=== PATIENT | male | born 1950 | race Caucasian/White ===

== ENCOUNTER 2018-07-17 07:15 | Day surgery (SDC) | payer OTHER, BC ==
--- OUTSIDE RECORDS SUMMARY | 2018-07-17 07:25 | XMS REPORT ---
:1950 [facility] Address [address] [place] [address] Dr. Honeycutt [address] [place] [id number] Care Team Providers Name Role Phone RADHA SAGE Unavailable Unavailable SHAHID MILLS Unavailable Unavailable Problems This patient has no known problems. Allergies, Adverse Reactions, Alerts This patient has no known allergies or adverse reactions. Medications This patient has no known medications. Results Test Description Test Time Test Comments Text Results Atomic Results Result Comments MR, ABDOMEN, 2018-05-05 09:49:00 Referring Md: Kenny FINAL REPORT PATIENT ID : WITHOUT / WITH IV Abrams [id number] EXAMINATION: MRI CONTRAST Abdomen with and without contrast. TECHNIQUE: Axial T1 nonfat sat in and out of phase, axial T2 fat sat, coronal T2 nonfat sat, axial DWI and ADC MR images of the abdomen were obtained before and after the administration of 8 cc of gadolinium. Axial T1 fat sat GRE dynamic images in precontrast, arterial, venous and delayed phases were obtained. CLINICAL HISTORY: Abnormal liver diagnostic imaging, liver lesion greater than 1 cm, normal liver, no known malignancy, multiple liver cysts COMPARISON: MRI abdomen April 20, 2017 FINDINGS: LOWER THORAX: Unremarkable. LIVER: Normal hepatic size and contour.. No hepatic signal abnormality. Multiple T2 hyperintense, T1 hypointense, nonenhancing lesions are again noted throughout the hepatic parenchyma ranging in size from 0.1-3.0 cm, which are relatively stable since the prior exam. Most lesions are unilocular, however, a few lesions have lobulated appearance and thin intervening nonvascular septations.For example:*A 3.0 x 1.9 cm lobulated lesion in hepatic segment II (series 9, image 13).*A 1.6 x 1.3 cm lobulated lesion in the anterior aspect of hepatic segment III (series 9, image 16).*A 2.1 x 1.2 cm lesion at the inferior tip of hepatic segment (series 7, image 25).*A 2.1 x 1.8 cm lobulated lesion in hepatic segment IVB (series 7, image 16). None of these lesions show enhancing mural nodules.No suspicious enhancing lesions. BILIARY: No ductal dilatation or filling defect. The gallbladder has a normal appearance. PANCREAS: No mass or ductal dilatation. SPLEEN: No splenomegaly. ADRENALS: No nodules. KIDNEYS: No hydronephrosis or solid enhancing mass in the imaged portion of the kidneys. PERITONEUM / RETROPERITONEUM: No upper abdominal free fluid. GI TRACT: No bowel dilation or evidence of obstruction. LYMPH NODES: No upper abdominal lymphadenopathy. VESSELS: The celiac trunk, superior and inferior mesenteric and bilateral renal arteries are patent. The portal, superior mesenteric and splenic veins are patent. No collateral circulation. BONES AND SOFT TISSUES: Stable dextroscoliosis of the lumbar spine with associated degenerative changes.. No soft tissue abnormalities. IMPRESSION: 1. Multiple stable simple hepatic cysts. The larger lesions are lobulated and contain thin nonvascular septa without enhancement or enhancing mural nodules. These lesions may represent minimally complex cysts versus grouped simple cysts. Signed: Zachary Lucero MDReport Verified Date/Time: 05/05/2018 09:49:32 Reading Location: [facility] Reading Room [address] [place] [address] -CREATININE 2018-05-04 12:06:00 Test Item Value Reference Range Comments POC-CREATININE (BEAKER) (test 0.9 mg/dL 0.6-1.[address] [facility] 7200 mhmv=7276) [facility] [address] POC-EGFR (BEAKER) (test 84 mL/min/1.73M2 qoib=9476) TISSUE [id number] 10:45:00Surgical Pathology Report Case: [id number] Authorizing Provider: Shahid Mills MD Collected: 09/27/2017 0912 Ordering Location: [facility] ENDOSCOPY Received: 09/27/2017 1150 SERVICES Pathologist: Naima Gaspar MD Specimens: A) - Polyp, Colon - Transverse, polypectomy B) -Polyp, Colon - Rectum, polypectomy A. TRANSVERSE COLON POLYP, BIOPSY: - HYPERPLASTIC POLYPB. RECTUM, POLYP, BIOPSY: - POLYPOID COLONIC MUCOSA WITH HYPERPLASTIC CHANGESJ/pl Signing Pathologist Direct Phone Line: [phone] signed by Naima Gaspar MD on 09/29/2017 at 10:45 AMEndoscopic report reviewed. [id number] cancer screening A.Transverse colon polyp. B. Rectum polyp Specimen A: Received in formalin labeled "polyp, colon transverse" are two fragments each 0.3 cm in greatest dimension. The specimen is entirely submitted in A1.Specimen B: Received in formalin labeled "polyp, colon rectum" is a single fragment measuring 0.5 cm in greatest dimension. The specimen is entirely submitted in B1. DB/ew PerformedMR, ABDOMEN, [id number] 15:16:00Referring Md: Kenny Tobias REPORT History: Liver lesion Comparison: None Technique : Multiplanar imaging with multiple sequences of the abdomen was performed utilizing a 3.0 jess magnet with and without the administration of gadolinium contrast. Comment: The lung bases are clear. There are no focal or diffuse abnormalities of the osseous structures. There is dextroscoliosis of the lumbar spine. The subcutaneous soft tissues as well as the musculature are within normal limits. The spleen, adrenalglands, kidneys, pancreas, stomach, and duodenum are within normal limits. There is no abdominal or retroperitoneal lymphadenopathy. The visualized portions of the large and small bowel are within normal limits. There are numerous hepatic cysts. The largest cyst is seen in the left lobe measuring up to 3.3 x 2.4 cm. No suspicious enhancing hepatic lesions are seen. No ascites is identified. The portal vein measures up to a maximum of 0.9 cm in diameter. There is no portal, splenic, or superior mesenteric vein thrombosis. Impression: Multiple hepatic cysts. No suspicious enhancing lesions are seen.Signed: Sherif Strickland MDReport Verified Date/Time: 15:16:29 Reading Location: [address] Radiology Reading Room POCT- [id number] 13:52:00 Test Item Value Reference Range Comments POC-CREATININE (BEAKER) 0.9 mg/dL 0.6-1.[address] [facility] [address] (test scch=3133) [facility] [address] POC-EGFR (BEAKER) (test 84 mL/min/1.73M2 ftzl=4819) CARCINOEMBRYONIC ANTIGEN (CEA)2017-01-13 14:17:00 Test Item Value Reference Range Comments CARCINOEMBRYONIC ANTIGEN (BEAKER) (test iuus=607) 2.3 ng/mL 0.0-5.0 HEPATITIS B SURFACE [id number] 14:13:00 Test Item Value Reference Range Comments HEPATITIS B SURFACE ANTIBODY (BEAKER) (test < mIU/mL <8.0 mpce=060) ALPHA FETOPROTEIN (AFP), TUMOR [id number] 14:06:00 Test Item Value Reference Range Comments ALPHA-FETOPROTEIN (BEAKER) (test znjm=7222) 6.2 ng/mL <10.0 HEPATITIS B CORE ANTIBODY, [id number] 14:06:00 Test Item Value Reference Range Comments HEPATITIS B CORE TOTAL ANTIBODY (BEAKER) (test Nonreactive Nonreactive bdxw=672) HEPATITIS A ANTIBODY, [id number] 14:06:00 Test Item Value Reference Range Comments HEPATITIS A IGG ANTIBODY (BEAKER) (test Nonreactive Nonreactive cpae=1876) HEPATITIS B SURFACE [id number] 13:58:00 Test Item Value Reference Range Comments HEPATITIS B SURFACE ANTIGEN (2) (BEAKER) (test Nonreactive Nonreactive jgis=8068) HEPATITIS C [id number] 13:58:00 Test Item Value Reference Range Comments HEPATITIS C ANTIBODY (BEAKER) (test qgax=223) Nonreactive Nonreactive
--- OUTSIDE RECORDS SUMMARY | 2018-07-17 07:25 | XMS REPORT | Clinical Summary ---
:1950 Author Organization [facility] Address [address] [place] [address] Care Team Providers Name Role Phone Romel Chen MD Primary Care Provider Allergies No Known Allergies Medications Medication Sig Dispensed Refills Start Date End Date Status atorvastatin Take 10 mg by 0 Active (LIPITOR) 10 MG mouth daily. tablet aspirin 81 MG EC Take 81 mg by 0 Active tablet mouth daily. b complex vitamins Take 1 tablet 0 Active tablet by mouth daily. TiZANidine Take 4 mg by 0 Active (ZANAFLEX) 4 MG mouth nightly . capsule pentoxifylline Take 400 mg by 0 Active (TRENTAL) 400 mg CR mouth 3 (three) tablet times daily with meals. multivitamin per Take 1 tablet 0 Active tablet by mouth daily. testosterone Place 1 packet 0 Active (ANDROGEL) 1 % (50 onto the skin mg/5 gram) GlPk daily. topical gel tadalafil (CIALIS) Take 5 mg by 0 Active 5 MG tablet mouth daily as needed for Erectile Dysfunction. latanoprost 1 drop nightly. 0 Active (XALATAN) 0.005 % ophthalmic solution VITAMIN B Take 1 tablet 0 Active COMPLEX/ZINC (B by mouth daily. COMPLEX-ZINC ORAL) Missing or 2 (two) times daily STRONVIVO 0 Active Non-Formulary SUPPLEMENT . Medication ranitidine (ZANTAC) Take 1 tablet 90 tablet 4 09/27/2017 Active 150 MG tablet (150 mg total) by mouth daily. lansoprazole Take 1 capsule 90 capsule 4 09/27/2017 Active (PREVACID) 30 MG (30 mg total) 9 capsule by mouth daily For About a month. LANSOPRAZOLE Take 30 mg by 0 Discontinued (PREVACID ORAL) mouth daily For 8 About a month. arginine, Take by mouth. 0 Discontinued L-arginine, 2,000 8 mg PwPk niacin (NIASPAN) Take 1,000 mg 0 Discontinued 1000 MG CR tablet by mouth 8 nightly. ranitidine (ZANTAC) Take 150 mg by 0 Discontinued 150 MG tablet mouth daily. 8 Active Problems Problem Noted Date Gastroesophageal reflux disease with esophagitis 06/16/2017 Abnormal liver diagnostic imaging 01/13/2017 Last Assessment & Plan: Diagnosed in 2014 on liver US and confirmed on CT. Findings are suggestive of simple cysts. No biliary dilatation and on other cysts on spleen, pancreas or kidneys. Some of the cysts are larger than before. Patient is asymptomatic and doesn't complain of constitutional symptoms. We will check tumor markers and check liver MRI in 3-4 months for further evaluation. Immunity status testing 01/13/2017 Last Assessment & Plan: CDC recommends that all patients with chronic liver disease, regardless of etiology, should be immunized to prevent hepatitis A and hepatitis B if they are not already immune. This should be done in ad dition to other age-appropriate vaccines. We will test for immunity to both viruses - vaccine recommendations will follow. Class 1 obesity in adult 01/13/2017 Last Assessment & Plan: Body mass index is 30.18 kg/(m^2). Obesity is an established risk factor for vascular complications (ie coronary artery disease, cerebrovascular disease, peripheral vascular disease), osteoarthritis, pulmonary disease, as well as the development of non-alcoholic fatty liver disease and the risk for non-alcoholic steatohepatitis. We have recommended a structured weight loss program (10% body weight initially), along with dietary modifications and regular exercise for overall good health and to minimize the risk of obesity -related complications. Encounters Date Type Specialty Care Team Description 05/16/2018 Office Visit Hepatology Chantell Estrella Abnormal liver diagnostic imaging (Primary Dx); MD Esteban Cancer screening; Lilia Ballesteros Immunity status testing; MATTHEW Whitmore Gastroesophageal reflux disease with esophagitis; Class 1 obesity due to excess calories without serious comorbidity with body mass index (BMI) of 30.0 to 30.9 in adult 05/04/2018 Hospital Encounter Magnetic Resonance Chantell Estrella Abnormal liver Imaging MD Esteban diagnostic imaging 3, [facility] Melecio Mr 05/03/2018 Travel 05/01/2018 Orders Only Hepatology Mariann Garcia Abnormal liver diagnostic imaging (Primary Dx); MORENITA Cisneros Cancer screening 09/27/2017 Surgery Zaid Acevedo COLONOSCOPY,POLYPECTOMY MD Jad 09/27/2017 Anesthesia Event José Sparks MD 09/27/2017 Hospital Encounter Zaid Acevedo MD 09/01/2017 Hospital Encounter Pre-Admission Resource, Oqmt Testing Preadmit Phone after 07/16/2017 Family History Medical History Relation Name Comments Atrial fibrillation Father Heart disease Father Stroke Father Lymphoma Mother non-hodgkins lymphoma Relation Name Status Comments Father Mother Social History Tobacco Use Types Packs/Day Years Used Date Former Smoker 0.25 Quit: 09/01/1989 Smokeless Tobacco: Never Used Tobacco Cessation: Counseling Given: No Comments: QUIT 2008 Alcohol Use Drinks/Week oz/Week Comments Yes scothch/wine 2-4/week Sex Assigned at Date Recorded Male 05/03/2018 5:51 PM CDT Job Start Date Occupation Industry Not on file Not on file Not on file Travel History Travel Start Travel End No recent travel history available. Last Filed Vital Signs Vital Sign Reading Time Taken Blood Pressure 144/86 05/16/2018 12:19 PM CDT Pulse 58 05/16/2018 12:19 PM CDT Temperature 37 C (98.6 F) 05/16/2018 12:19 PM CDT Respiratory Rate 15 05/16/2018 12:19 PM CDT Oxygen Saturation 96% 05/16/2018 12:19 PM CDT Inhaled Oxygen Concentration - - Weight 80.2 kg (176 lb 12.8 oz) 05/16/2018 12:19 PM CDT Height 165.1 cm (5' 5") 05/16/2018 12:19 PM CDT Body Mass Index 29.42 05/16/2018 12:19 PM CDT Plan of Treatment Date Type Specialty Care Team Description 05/17/2019 Office Visit Hepatology Resource, [facility] E Procedures Procedure Name Priority Date/Time Associated Comments Diagnosis MR ABDOMEN WITH/WITHOUT Routine 05/04/2018 1:07 Abnormal liver Results for this IV CONTRAST PM CDT diagnostic procedure are in imaging the results section. POCT-CREATININE Routine 05/04/2018 12:03 Results for this PM CDT procedure are in the results section. BASIC METABOLIC PANEL Routine 05/03/2018 8:38 Abnormal liver Results for this (7) AM CDT diagnostic procedure are in imaging the results Cancer screening section. HEPATIC FUNCTION PANEL Routine 05/03/2018 8:38 Abnormal liver Results for this AM CDT diagnostic procedure are in imaging the results Cancer screening section. CBC W/PLT COUNT & AUTO Routine 05/03/2018 8:38 Abnormal liver Results for this DIFFERENTIAL AM CDT diagnostic procedure are in imaging the results Cancer screening section. PROTHROMBIN TIME/INR Routine 05/03/2018 8:38 Abnormal liver Results for this AM CDT diagnostic procedure are in imaging the results Cancer screening section. ALPHA FETOPROTEIN (AFP), Routine 05/03/2018 8:38 Abnormal liver Results for this TUMOR MARKER AM CDT diagnostic procedure are in imaging the results Cancer screening section. CARCINOEMBRYONIC ANTIGEN Routine 05/03/2018 8:38 Abnormal liver Results for this (CEA) AM CDT diagnostic procedure are in imaging the results Cancer screening section. CARBOHYDRATE ANTIGEN Routine 05/03/2018 8:38 Abnormal liver Results for this 19-9 (CA 19-9) AM CDT diagnostic procedure are in imaging the results Cancer screening section. COLONOSCOPY,POLYPECTOMY 09/27/2017 10:00 Colon cancer AM CDT screening REPORT OF PROCEDURE - 09/27/2017 9:25 ENDOSCOPY URL AM CDT TISSUE EXAM AP Routine 09/27/2017 9:12 Results for this AM CDT procedure are in the results section. after 07/16/2017 Results MR abdomen with/without IV contrast (05/04/2018 1:07 PM CDT) Specimen Narrative Performed At FINAL REPORT [facility] EXAMINATION: MRI Abdomen with and without contrast. TECHNIQUE: Axial T1 nonfat sat in and out of phase, axial T2 fat sat, coronal T2 nonfat sat, axial DWI and ADC MR images of the abdomen were obtained before and after the administration of 8 cc of gadolinium.Axial T1 fat sat GRE dynamic images in precontrast, arterial, venous and delayed phases were obtained. CLINICAL HISTORY: Abnormal liver diagnostic imaging, liver lesion greater than 1 cm, normal liver, no known malignancy, multiple liver cysts COMPARISON: MRI abdomen April 20, 2017 FINDINGS: LOWER THORAX: Unremarkable. LIVER: Normal hepatic size and contour..No hepatic signal abnormality. Multiple T2 hyperintense, T1 hypointense, nonenhancing lesions are again noted throughout the hepatic parenchyma ranging in size from 0.1-3.0 cm, which are relatively stable since the prior exam. Most lesions are unilocular, however, a few lesions have lobulated appearance and thin intervening nonvascular septations. For example: *A 3.0 x 1.9 cm lobulated lesion in hepatic segment II (series 9, image 13). *A 1.6 x 1.3 cm lobulated lesion in the anterior aspect of hepatic segment III (series 9, image 16). *A 2.1 x 1.2 cm lesion at the inferior tip of hepatic segment (series 7, image 25). *A 2.1 x 1.8 cm lobulated lesion in hepatic segment IVB (series 7, image 16). None of these lesions show enhancing mural nodules. No suspicious enhancing lesions. BILIARY: No ductal dilatation or filling defect.The gallbladder has a normal appearance. PANCREAS: No [...] inferior mesenteric and bilateral renal arteries are patent.The portal, superior mesenteric and splenic veins are patent.No collateral circulation. BONES AND SOFT TISSUES: Stable dextroscoliosis of the lumbar spine with associated degenerative changes..No soft tissue abnormalities. IMPRESSION: 1. Multiple stable simple hepatic cysts. The larger lesions are lobulated and contain thin nonvascular septa without enhancement or enhancing mural nodules. These lesions may represent minimally complex cysts versus grouped simple cysts. Signed: Gabe Lucero MD Report Verified Date/Time:05/05/2018 09:49:32 Reading Location: [facility] Room [address] [place] [address] Procedure Note Interface, External Ris In - 05/05/2018 9:51 AM CDT FINAL REPORT EXAMINATION: MRI Abdomen with and without contrast. TECHNIQUE: Axial [...] have lobulated appearance and thin intervening nonvascular septations. For example: *A 3.0 x 1.9 cm lobulated lesion in hepatic segment II (series 9, image 13). *A 1.6 x 1.3 cm lobulated lesion in the anterior aspect of hepatic segment III (series 9, image 16). *A 2.1 x 1.2 cm lesion at the inferior tip of hepatic segment (series 7, image 25). *A 2.1 x 1.8 cm lobulated lesion in hepatic segment IVB (series 7, image 16). None of these lesions show enhancing mural nodules. No suspicious enhancing lesions. BILIARY: No ductal dilatation [...] complex cysts versus grouped simple cysts. Signed: Gabe Lucero MD Report Verified Date/Time: 05/05/2018 09:49:32 Reading Location: [facility] Reading Room [address] [place] [address] Performing Organization Address City/State/Zipcode Phone Number GE RIS POC-Creatinine (05/04/2018 12:03 PM CDT) POC-Creatinine 0.9Comment: TESTED AT [facility] 0.6 - 1.3 mg/dL [facility] [address] [facility] [employer] [address] POC-EGFR 84 mL/min/1.73M2 [facility] Specimen Blood Performing Organization Address City/[facility] Phone Number [facility] [address] [place] [phone] CENTER Carbohydrate antigen 19-9 (CA 19-9) (05/03/2018 8:38 AM CDT) Carbohydrate Antigen 4 0 - 35 U/mL [facility] 1 19-9 Comment: [facility] Electrochemiluminescence Immunoassay (ECLIA) Values obtained with different assay methods or kits cannot be used interchangeably.Results cannot be interpreted as absolute evidence of the presence or absence of malignant disease. Specimen Blood Narrative Performed At Performed at:[facility] [employer] [place] [employer] [address] [place], [place] [id number] Senior Instrumentation Engineer: Marlon Valle MD, Phone:[phone] Performing Organization Address [facility] Phone Number [facility] 1 Alpha fetoprotein (AFP), tumor marker (05/03/2018 8:38 AM CDT) AFP, Serum, Tumor 5.6 0.0 - 8.3 ng/mL [facility] 1 Marker Comment: [facility] Electrochemiluminescence Immunoassay (ECLIA) Values obtained with different assay methods or kits cannot be used interchangeably.Results cannot be interpreted as absolute evidence of the presence or absence of malignant disease. This test is not interpretable in females. Specimen Blood Narrative Performed At Performed at:[employer] [place] [employer] [place], [id number] Senior Instrumentation Engineer: Marlon Valle MD, Phone:[phone] Performing Organization Address [facility] Phone Number [facility] 1 Pro-time/INR (05/03/2018 8:38 AM CDT) INR 1.0 0.8 - 1.2 [facility] 1 Comment: Reference interval is for non-anticoagulated patients. Suggested INR therapeutic range for Vitamin K antagonist therapy: Standard Dose (moderate intensity therapeutic range): 2.0 - 3.0 Higher intensity therapeutic range 2.5 - 3.5 Prothrombin Time 10.7 9.1 - 12.0 sec [facility] 1 Specimen Blood Narrative Performed At Performed at:[address] [facility] [address] [place], [id number] Senior Instrumentation Engineer: Marlon Valle MD, Phone:[phone] Performing Organization Address [facility] Phone Number [facility] 1 CBC with platelet count + automated diff (05/03/2018 8:38 AM CDT) WBC 5.9 3.4 - 10.8 x10E3/uL [facility] 1 RBC 4.90 4.14 - 5.80 x10E6/uL [facility] 1 Hemoglobin 15.5 13.0 - 17.7 g/dL [facility] 1 Hematocrit 46.1 37.5 - 51.0 % [facility] 1 MCV 94 79 - 97 fL [facility] 1 MCH 31.6 26.6 - 33.0 pg [facility] 1 MCHC 33.6 31.5 - 35.7 g/dL [facility] 1 RDW 13.1 12.3 - 15.4 % [facility] 1 Platelets 259 150 - 379 x10E3/uL [facility] % Neutros 67 Not Estab. % [facility] % Lymphs 24 Not Estab. % [facility] % Monos 6 Not Estab. % [facility] % Eos 2 Not Estab. % [facility] % Baso 1 Not Estab. % [facility] # Neutros 4.0 1.4 - 7.0 x10E3/uL [facility] # Lymphs 1.4 0.7 - 3.1 x10E3/uL [facility] # Monos 0.3 0.1 - 0.9 x10E3/uL [facility] # Eos 0.1 0.0 - 0.4 x10E3/uL [facility] 1 Baso (Absolute) 0.0 0.0 - 0.2 x10E3/uL [facility] % Immature Grans 0 Not Estab. % [facility] 1 # Immature Grans 0.0 0.0 - 0.1 x10E3/uL [facility] 1 Specimen Blood Narrative Performed At Performed at:[address] [place], [place] [id number] Senior Instrumentation Engineer: Marlon Valle MD, Phone:[phone] Performing Organization Address [facility] Phone Number [facility] 1 Carcinoembryonic Antigen (CEA) (05/03/2018 8:38 AM CDT) CEA 2.4 0.0 - 4.7 ng/mL [facility] 1 Comment: Nonsmokers <3.9 Smokers <5.6 [facility] Electrochemiluminescence Immunoassay (ECLIA) Values obtained with different assay methods or kits cannot be used interchangeably.Results cannot be interpreted as absolute evidence of the presence or absence of malignant disease. Specimen Blood Narrative Performed At Performed at:[address] [place], [place] [id number] Senior Instrumentation Engineer: Marlon Valle MD, Phone:[phone] Performing Organization Address [facility] Phone Number [facility] 1 Hepatic function panel (05/03/2018 8:38 AM CDT) Protein, Total, Serum 7.0 6.0 - 8.5 g/dL [facility] 1 Albumin, Serum 5.0 (H) 3.6 - 4.8 g/dL [facility] 1 Bilirubin, Total 0.7 0.0 - 1.2 mg/dL [facility] 1 Bilirubin, Direct 0.18 0.00 - 0.40 mg/dL [facility] 1 Alkaline Phosphatase, S 55 39 - 117 IU/L [facility] 1 AST (SGOT) 29 0 - 40 IU/L [facility] 1 ALT (SGPT) 24 0 - 44 IU/L [facility] 1 Specimen Blood Narrative Performed At Performed at:[address] [place], [place] [id number] Senior Instrumentation Engineer: Marlon Valle MD, Phone:[phone] Performing Organization Address [facility] Cent[facility] Phone Number [facility] 1 Basic Metabolic Panel (05/03/2018 8:38 AM CDT) Glucose, Serum 90 65 - 99 mg/dL [facility] 1 BUN 18 8 - 27 mg/dL [facility] 1 Creatinine, Serum 0.94 0.76 - 1.27 mg/dL [facility] 1 eGFR If NonAfricn Am 84 >59 mL/min/1.73 [facility] 1 eGFR If Africn Am 97 >59 mL/min/1.73 [facility] 1 BUN/Creatinine Ratio 19 10 - 24 [facility] 1 Sodium, Serum 142 134 - 144 mmol/L [facility] 1 Potassium, Serum 4.3 3.5 - 5.2 mmol/L [facility] 1 Chloride, Serum 100 96 - 106 mmol/L [facility] 1 Carbon Dioxide, Total 26 20 - 29 mmol/L [facility] 1 Calcium, Serum 9.7 8.6 - 10.2 mg/dL [facility] 1 Specimen Blood Narrative Performed At Performed at:01 - [facility] [place] [facility] [address] [place], [id number] Senior Instrumentation Engineer: Marlon Valle MD, Phone:[phone] Performing Organization Address [facility] Phone Number [facility] 1 REPORT OF PROCEDURE - ENDOSCOPY URL (09/27/2017 9:25 AM CDT) Narrative Performed At Tissue Exam (09/27/2017 9:12 AM CDT) Case Report Surgical Pathology Report Case: [id number] [facility] Authorizing Provider:Zaid Acevedo MD Collected: 09/27/2017 0912 [facility] Ordering Location: [facility] ENDOSCOPY Received: 09/27/2017 1150 SERVICES Pathologist: Naima Gaspar MD Specimens: A) - Polyp, Colon - Transverse, polypectomy B) - Polyp, Colon - Rectum, polypectomy DIAGNOSIS A. TRANSVERSE COLON POLYP, BIOPSY: [facility] - HYPERPLASTIC POLYP [facility] B. RECTUM, POLYP, BIOPSY: - POLYPOID COLONIC MUCOSA WITH HYPERPLASTIC CHANGE SJ/pl Signing Pathologist Direct Phone Line: [phone] COMMENT Endoscopic report reviewed. [facility] CPT Code(s) 06025 x2 [facility] CLINICAL HISTORY Colon cancer screening [facility] SPECIMEN SOURCE A. Transverse colon polyp. [facility] B. Rectum polyp [facility]ENTER GROSS DESCRIPTION Specimen A: Received in formalin labeled "polyp, colon transverse" are two fragments each 0.3 cm in greatest dimension. The specimen is entirely submitted in A1. [facility] Specimen B: Received in formalin labeled "polyp, colon rectum" is a single fragment measuring 0.5 cm in greatest dimension. The specimen is entirely submitted in B1. DB/ew MICROSCOPIC DESCRIPTION Performed [facility] Specimen Tissue - Polyp, Colon - Transverse Tissue - Polyp, Colon - Rectum Performing Organization Address City/State/Zipcode Phone Number [facility] [address] [place] [address] CENTER after 07/16/2017 Insurance Payer Benefit Plan / Subscriber ID Type Phone Address Group MEDICARE MEDICARE A B xxxxxxxxxxx Medicare BLUE CROSS/BLUE BS [place] xxxxxxxxxxxx [facility] [phone] [address] [facility] [place] [address] (Home) [place] [address]
[2018-07-17] MEDS ORDERED: NA CHLORIDE 0.9% 500 ML ONE (07:38)
[2018-07-17] MEDS ORDERED: EPINEPHRINE/PF 1 MG/ML AMP ONE (08:05)
[2018-07-17] MEDS ORDERED: BALANCED SALT IRRIG PLAIN 500 ML BTL IRR ONE (08:05)
[2018-07-17] MEDS ORDERED: NS 0.9% VIAL 10 ML ONE (08:05)
[2018-07-17] MEDS: PHENYLEPHRINE 10% OPTH 5ML ONE ×3 (08:10→08:20)
[2018-07-17] MEDS: CYCLOPENTOLATE 1% OPTH 2 ML ONE ×3 (08:10→08:20)
[2018-07-17] MEDS: TETRACAINE HCL 0.5% 4ML OPTH ONE ×2 (08:24→09:01)
[2018-07-17] MEDS: LIDOCAINE 2% MPF 5 ML VIAL ONE ×2 (08:25→09:02)
[2018-07-17] MEDS: BUPIVACAINE 0.25% PF 10 ML VIAL ONE ×2 (08:25→09:02)
[2018-07-17] MEDS ORDERED: LIDOCAINE 2% MPF 5 ML VIAL ONE (08:35)
[2018-07-17] MEDS ORDERED: PROPOFOL 200 MG/20 ML VIAL IV ONE (08:35)
[2018-07-17] MEDS ORDERED: BSS PLUS 500 ML BOTTLE IRR ONE (09:11)
[2018-07-17] MEDS: DUOVISC 1 KIT OPTH ONE ×2 (09:14→09:19)
[2018-07-17] MEDS: MOXIFLOXACIN HCL 10 DROPS/ML **OR USE OPTH ONE ×2 (09:19→09:28)
--- NOTE | 2018-07-17 09:38 | P.BOP ---
Preoperative diagnosis: Nuclear sclerotic cataract and goniosynechiae OD Postoperative diagnosis: Same Primary procedure: Phacoemulsification with IOL OD Estimated blood loss: None Anesthesia: Local (Subtenon's infusion with anesthesia for cataract surgery) Complications: None Implants: [id number] +25.5 Transferred to: Other (Day surgery) Condition: Good
[2018-07-17] MEDS ORDERED: DUOVISC 1 KIT OPTH ONE (10:31)
--- NOTE | 2018-07-17 12:30 | OP ---
Date of Procedure: 07/17/2018 Surgeon: Janel Flores MD Anesthesiologist: Nori Rg CRNA and Haroldo Al MD. Preoperative Diagnosis: Nuclear sclerotic cataract and corneal synechiae, OD ( right eye). Operation Performed: Phacoemulsification with intraocular lens implant, right eye. Anesthesia: Per cataract surgery. Complications: None Description Of Procedure: In day surgery, the patient was prepped with Betadine and draped. A conjunctival incision was made in the inferior nasal quadrant with Saundra scissors. A sub-Tenon block consisting of a 1:1 mixture of 2% Xylocaine and 0.25% bupivacaine was placed through the conjunctival incision with a blunt cannula. A Honan balloon was placed over the eye and the patient was transferred to the operating room. In the operating room the patient was prepped and draped in the usual sterile fashion for ophthalmic surgery. A lid speculum was placed in the right eye. Two paracentesis sites were made superiorly and inferiorly in the limbal cornea. Viscoat was placed in the anterior chamber and a crescent blade was used to make a corneal groove and tunnel, and a keratome was used to enter the anterior chamber. Provisc was placed in the anterior chamber and a 360 degree capsulotomy was performed with a cystitome. The lens was hydrodissected with BSS and rotated freely. The lens was removed with a stop and chop technique. 4.15 Phaco CDE was used to remove the lens. Residual cortex was removed with the irrigation and aspiration. Provisc was placed in the capsular bag. A ZCB00 +25.5 lens was placed in the capsular bag without complications. Irrigation and aspiration was used to remove residual viscoelastic. The paracentesis sites were hydrated with BSS. The wound and paracentesis sites were inspected and found to be watertight. Vigamox 0.07 cc was placed intracamerally at the end of the procedure. The eye was irrigated with balanced salt solution. The eye was patched with a soft cotton patch and Lovell metal shield. The patient was returned to day surgery in good condition. Comments: BSS Plus was used and the incision was created in the sclera after incising the conjunctiva with Saundra scissors. Discharge Instructions: State Mr. Howe is to follow up with my office this afternoon in the morning. MARIEL/MARY Voice ID: [id number] Report ID: [id number] [id number]
== END 2018-07-17 10:08 | disposition home or self-care (01) ==
LOC: OR 07:15
PROVIDERS: ATTEND Ophthalmology Retina Specialist
PROC: 08RJ3JZ Replacement of Right Lens with Synthetic Substitute, Percutaneous Approach (ICD-10-PCS; principal; 2018-07-17 09:00)
DX: H25.11 Age-related nuclear cataract, right eye (principal); H40.031 Anatomical narrow angle, right eye; H21.521 Goniosynechiae, right eye; E78.00 Pure hypercholesterolemia, unspecified; K21.9 Gastro-esophageal reflux disease without esophagitis; Z79.82 Long term (current) use of aspirin; Z79.899 Other long term (current) drug therapy
CPT/HCPCS: 66984; J2704; J0171

== ENCOUNTER 2018-10-16 08:53 | Day surgery (SDC) | payer OTHER, BC ==
--- OUTSIDE RECORDS SUMMARY | 2018-10-16 08:56 | XMS REPORT | Clinical Summary ---
:[address] [facility] Address [address] [place] [address] Care Team Providers Name Role Phone Romel Chen MD Primary Care Provider Allergies No Known Allergies Medications Medication Sig Dispensed Refills Start Date End Date Status atorvastatin Take 10 mg by 0 Active (LIPITOR) 10 MG mouth daily. tablet aspirin 81 MG EC Take 81 mg by 0 Active tablet mouth daily. b complex vitamins Take 1 tablet by 0 Active tablet mouth daily. TiZANidine (ZANAFLEX) Take 4 mg by 0 Active 4 MG capsule mouth nightly . pentoxifylline Take 400 mg by 0 Active (TRENTAL) 400 mg CR mouth 3 (three) tablet times daily with meals. multivitamin per Take 1 tablet by 0 Active tablet mouth daily. testosterone Place 1 packet 0 Active (ANDROGEL) 1 % (50 onto the skin mg/5 gram) GlPk daily. topical gel tadalafil (CIALIS) 5 Take 5 mg by 0 Active MG tablet mouth daily as needed for Erectile Dysfunction. latanoprost (XALATAN) 1 drop nightly. 0 Active 0.005 % ophthalmic solution VITAMIN B Take 1 tablet by 0 Active COMPLEX/ZINC (B mouth daily. COMPLEX-ZINC ORAL) Missing or 2 (two) times daily STRONVIVO 0 Active Non-Formulary SUPPLEMENT . Medication ranitidine (ZANTAC) Take 1 tablet 90 tablet 4 09/27/2017 Active 150 MG tablet (150 mg total) by mouth daily. lansoprazole Take 1 capsule 90 capsule 4 09/27/2017 09/27/2018 (PREVACID) 30 MG (30 mg total) by capsule mouth daily For About a month. Active Problems Problem Noted Date Gastroesophageal reflux [...] liver Imaging MD Esteban diagnostic imaging 3, [facility] Melecio Mr 05/03/2018 Travel 05/01/2018 Orders Only Hepatology Mariann Garcia Abnormal liver diagnostic imaging (Primary Dx); PMORENITA Cancer screening after 10/15/2017 Family History Medical History Relation Name Comments [...] Team Description 05/17/2019 Office Visit Hepatology Resource, [facility] E Procedures Procedure Name Priority Date/Time Associated Comments Diagnosis MR ABDOMEN WITH/WITHOUT Routine 05/04/2018 1:07 Abnormal liver Results for this IV CONTRAST PM CDT diagnostic imaging procedure are in the results section. POCT-CREATININE Routine 05/04/2018 12:03 Results for this PM CDT procedure are in the results section. BASIC METABOLIC PANEL Routine 05/03/2018 8:38 Abnormal liver Results for this (7) AM CDT diagnostic imaging procedure are in Cancer screening the results section. HEPATIC FUNCTION PANEL Routine 05/03/2018 8:38 Abnormal liver Results for this AM CDT diagnostic imaging procedure are in Cancer screening the results section. CBC W/PLT COUNT & AUTO Routine 05/03/2018 8:38 Abnormal liver Results for this DIFFERENTIAL AM CDT diagnostic imaging procedure are in Cancer screening the results section. PROTHROMBIN TIME/INR Routine 05/03/2018 8:38 Abnormal liver Results for this AM CDT diagnostic imaging procedure are in Cancer screening the results section. ALPHA FETOPROTEIN (AFP), Routine 05/03/2018 8:38 Abnormal liver Results for this TUMOR MARKER AM CDT diagnostic imaging procedure are in Cancer screening the results section. CARCINOEMBRYONIC ANTIGEN Routine 05/03/2018 8:38 Abnormal liver Results for this (CEA) AM CDT diagnostic imaging procedure are in Cancer screening the results section. CARBOHYDRATE ANTIGEN Routine 05/03/2018 8:38 Abnormal liver Results for this 19-9 (CA 19-9) AM CDT diagnostic imaging procedure are in Cancer screening the results section. after 10/15/2017 Results MR abdomen with/without IV contrast (05/04/2018 1:07 PM CDT) Specimen Narrative Performed At FINAL REPORT [facility] EXAMINATION: MRI Abdomen with and without contrast. [...] versus grouped simple cysts. Signed: Zachary Lucero MD Report Verified Date/Time:05/05/2018 09:49:32 Reading Location: [facility] Room [address] [place] [address] Procedure Note Interface, External Ris In - [...] versus grouped simple cysts. Signed: Zachary Lucero MD Report Verified Date/Time: 05/05/2018 09:49:32 Reading Location: [facility] Reading Room [address] [place] [address] Performing Organization Address City/[facility]/Zipcode Phone Number GE RIS POC-Creatinine (05/04/2018 12:03 PM CDT) POC-Creatinine 0.9Comment: TESTED AT [facility] 0.6 - 1.3 mg/dL [facility] [address] [place] [address] POC-EGFR 84 mL/min/1.73M2 [facility] Specimen Blood Performing Organization Address City/[facility]/Zipcode Phone Number [facility] MEDICAL [address] [place] [phone] CENTER Carbohydrate antigen 19-9 (CA 19-9) (05/03/2018 8:38 AM CDT) Carbohydrate Antigen 4 0 - 35 U/mL [facility] 1 19-9 Comment: [facility] Electrochemiluminescence Immunoassay (ECLIA) Values obtained with different assay methods or kits cannot be used interchangeably.Results cannot be interpreted as absolute evidence of the presence or absence of malignant disease. Specimen Blood Narrative Performed At Performed at:[address] [place], [place] [id number] Academic Interventionist: Marlon Valle MD, Phone:[phone] Performing Organization Address [facility] Phone Number [facility] 1 Alpha fetoprotein (AFP), tumor marker (05/03/2018 [...] females. Specimen Blood Narrative Performed At Performed at:[address] [place], [place] [id number] Academic Interventionist: Marlon Valle MD, Phone:[phone] Performing Organization Address [facility] Phone Number [facility] 1 Pro-time/INR (05/03/2018 8:38 AM CDT) INR 1.0 0.8 - 1.2 [facility] 1 Comment: Reference interval is for non-anticoagulated patients. Suggested INR therapeutic range for Vitamin K antagonist therapy: Standard Dose (moderate intensity therapeutic range): 2.0 - 3.0 Higher intensity therapeutic range 2.5 - 3.5 Prothrombin Time 10.7 9.1 - 12.0 sec [facility] 1 Specimen Blood Narrative Performed At Performed at:[address] [place], [place] [id number] Academic Interventionist: Marlon Valle MD, Phone:[phone] Performing Organization Address [facility] Phone Number [facility] 1 CBC with platelet count + automated [...] 1 Specimen Blood Narrative Performed At Performed at: [facility] [address] [place], [id number] Academic Interventionist: Marlon Valle MD, Phone:[phone] Performing Organization Address City/State/Zipcode Phone Number [facility] 1 Carcinoembryonic Antigen (CEA) (05/03/2018 8:38 AM CDT) CEA 2.4 0.0 - 4.7 ng/mL [facility] 1 Comment: Nonsmokers <3.9 Smokers <5.6 [facility] Electrochemiluminescence Immunoassay (ECLIA) Values obtained with different assay methods or kits cannot be used interchangeably.Results cannot be interpreted as absolute evidence of the presence or absence of malignant disease. Specimen Blood Narrative Performed At Performed at: [facility] [address] [place], [id number] Academic Interventionist: Marlon Valle MD, Phone:[phone] Performing Organization Address [facility] Phone Number [facility] 1 Hepatic function panel (05/03/2018 8:38 AM [...] 1 Specimen Blood Narrative Performed At Performed at: [facility] [address] [place], [id number] Academic Interventionist: Marlon Valle MD, Phone:[phone] Performing Organization Address [facility] Phone Number [facility] 1 Basic Metabolic Panel (05/03/2018 8:38 [...] Narrative Performed At Performed at:01 - [facility] [address] [place], [id number] Academic Interventionist: Marlon Valle MD, Phone:[phone] Performing Organization Address City/State/Zipcode Phone Number [facility] 1 after 10/15/2017 Insurance Payer Benefit Plan / Subscriber ID Type Phone Address Group MEDICARE MEDICARE A B xxxxxxxxxxx Medicare BLUE CROSS/BLUE [place] INDEMNITY [place] xxxxxxxxxxxx PPO [phone] [address] [place] [address] (Home) [place] [address]
--- OUTSIDE RECORDS SUMMARY | 2018-10-16 08:56 | XMS REPORT ---
:1950 Author Organization [facility] Address [address] [place] [address] Dr. Honeycutt [address] [place] [address] Care Team Providers Name Role Phone RADHA [...] ID : WITHOUT / WITH IV Abrams [id number] EXAMINATION: MRI CONTRAST Abdomen with and without [...] MDReport Verified Date/Time: 05/05/2018 09:49:32 Reading Location: [facility] Reading Room [address] [place] [address] -CREATININE 2018-05-04 12:06:00 Test Item Value Reference Range Comments POC-CREATININE (BEAKER) (test 0.9 mg/dL 0.6-1.3 TESTED AT [facility] [address] nqti=3024) [facility] [address] POC-EGFR (BEAKER) (test 84 mL/min/1.73M2 mmmh=7554) TISSUE [id number] 10:45:00Surgical Pathology Report Case: [id number] Authorizing Provider: Shahid Mills MD Collected: 09/27/2017 0912 Ordering Location: [facility] ENDOSCOPY Received: 09/27/2017 1150 SERVICES Pathologist: Naima Gaspar MD Specimens: A) - Polyp, Colon - Transverse, polypectomy B) -Polyp, Colon - Rectum, polypectomy A. TRANSVERSE COLON POLYP, BIOPSY: - HYPERPLASTIC POLYPB. RECTUM, POLYP, BIOPSY: - POLYPOID COLONIC MUCOSA WITH HYPERPLASTIC CHANGESJ/pl Signing Pathologist Direct Phone Line: [phone] signed by Naima Gaspar MD on 09/29/2017 at 10:45 AMEndoscopic report reviewed. [address] [id number] cancer screening A.Transverse colon polyp. B. Rectum polyp Specimen A: Received in formalin labeled "polyp, colon transverse" are two fragments each 0.3 cm in greatest dimension. The specimen is entirely submitted in A1.Specimen B: Received in formalin labeled "polyp, colon rectum" is a single fragment measuring 0.5 cm in greatest dimension. The specimen is entirely submitted in B1. DB/ew PerformedMR, ABDOMEN, [id number] 15:16:00Referring Md: Kenny Tobias REPORT History: Liver [...] Strickland MDReport Verified Date/Time: 15:16:29 Reading Location: [address] Radiology Reading Room POCT- [id number] 13:52:00 Test Item Value Reference Range Comments POC-CREATININE (BEAKER) 0.9 mg/dL 0.6-1.3 TESTED AT [facility] [address] (test mgxd=0581) [facility] [address] POC-EGFR (BEAKER) (test 84 mL/min/1.73M2 wnxj=1723) CARCINOEMBRYONIC ANTIGEN (CEA)2017-01-13 14:17:00 Test Item Value Reference Range Comments CARCINOEMBRYONIC ANTIGEN (BEAKER) (test qeyz=162) 2.3 ng/mL 0.0-5.0 HEPATITIS B SURFACE [id number] 14:13:00 Test Item Value Reference Range Comments HEPATITIS B SURFACE ANTIBODY (BEAKER) (test < mIU/mL <8.0 zlhm=817) ALPHA FETOPROTEIN (AFP), TUMOR [id number] 14:06:00 Test Item Value Reference Range Comments ALPHA-FETOPROTEIN (BEAKER) (test yoqo=4625) 6.2 ng/mL <10.0 HEPATITIS B CORE ANTIBODY, [id number] 14:06:00 Test Item Value Reference Range Comments HEPATITIS B CORE TOTAL ANTIBODY (BEAKER) (test Nonreactive Nonreactive rona=838) HEPATITIS A ANTIBODY, [id number] 14:06:00 Test Item Value Reference Range Comments HEPATITIS A IGG ANTIBODY (BEAKER) (test Nonreactive Nonreactive dicp=1508) HEPATITIS B SURFACE [id number] 13:58:00 Test Item Value Reference Range Comments HEPATITIS B SURFACE ANTIGEN (2) (BEAKER) (test Nonreactive Nonreactive rfmm=0920) HEPATITIS C [id number] 13:58:00 Test Item Value Reference Range Comments HEPATITIS C ANTIBODY (BEAKER) (test xtqb=421) Nonreactive Nonreactive
--- OUTSIDE RECORDS SUMMARY | 2018-10-16 08:57 | XMS REPORT | Summary of Care ---
:1950 Author Organization [place] [address] Care Team Providers Name Role Phone Kenny Joseph MD OTHER Unavailable Arden Peguero MD OTHER Yossi lFanagan MD OTHER Romel Chen MD Primary Care Provider Reason for Visit Reason Comments Follow Up Encounter Details Date Type Department Care Team Description 2018 Office Visit [facility] Yossi Flanagan MD Follow Up Medicine Urology [address], [address] [place], [place] [address] [place] [address] Allergies No Known Allergiesdocumented as of this encounter (statuses as of 2018) Medications Medication Sig Dispensed Refills Start Date End Date Status ASPIRIN 0 Active PENTOXIFYLLINE 0 Active tizanidine (ZANAFLEX) 0 02/21/2014 Active 4 MG tablet atorvastatin Take 10 mg by 0 Active (LIPITOR) 10 MG mouth daily. tablet testosterone (TESTIM) 0 04/28/2014 Active 50 MG/5GM (1%) GEL testosterone (TESTIM) Apply 10 g 30 Package 2 04/09/2015 Active 50 MG/5GM (1%) GEL topically daily. tadalafil (CIALIS) 5 Take 1 Tab by 30 Tab 11 01/23/2016 Active MG tablet mouth daily. latanoprost (XALATAN) 0 02/22/2016 Active 0.005 % ophthalmic solution lansoprazole Take 1 Cap by 90 Cap 4 11/01/2017 Active (PREVACID) 30 MG mouth daily. capsuleIndications: Gastroesophageal reflux disease, esophagitis presence not specified, Fernandes's esophagus without dysplasia, Esophagitis RaNITidine HCl 150 MG Take 150 mg by 90 Each 4 11/01/2017 Active CAPSIndications: mouth daily. Gastroesophageal reflux disease, esophagitis presence not specified, Fernandes's esophagus without dysplasia, Esophagitis pentoxifylline 1 Tab 3 times 270 Tab 3 03/30/2018 Active (TRENTAL) 400 MG CR daily (with tabletIndications: meals). Peyronie's disease Multiple Vitamin Take by 0 10/06/19 Discontinued (MULTIVITAMIN PO) mouth. 19 niacin (NIASPAN) 1000 0 04/16/2014 10/06/19 Discontinued MG CR tablet 19 Multiple Vitamin Take 1 tablet 0 10/06/19 Discontinued (MULTI-VITAMINS) TABS by mouth 19 daily. documented as of this encounter (statuses as of 2018) Active Problems Problem Noted Date Xerostomia 08/16/2013 Hypogonadism in male 01/16/2013 Cervical spondylosis 01/04/2012 Neck pain 01/04/2012 Neck stiffness 01/04/2012 Lumbar stenosis 11/23/2011 Right foot pain 11/23/2011 Radiculitis 11/23/2011 Leg pain 11/23/2011 Spondylolisthesis 11/23/2011 Lumbar spondylosis 11/23/2011 Scoliosis (and kyphoscoliosis), idiopathic 09/27/2011 Overweight(278.02) 09/20/2011 Last Assessment & Plan: I have counseled the patient at length to modify lifestyle. Routine medical exam 09/20/2011 Last Assessment & Plan: Stable exam except as above. 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 Reviewed recent venous doppler and Christopher's cyst noted Erectile dysfunction 03/04/2009 Last Assessment & Plan: With HRT Prostate cancer 03/04/2009 Last Assessment & Plan: Close F/u with Peyronie's disease 02/25/2009 documented as of this encounter (statuses as of 2018) Immunizations Name Administration Dates Next Due Tdap 09/16/2014 documented as of this encounter Social History Tobacco Use Types Packs/Day Years Used Date Light Tobacco Smoker Cigarettes 0.5 8 Smokeless Tobacco: Never Used Comments: I am more a social smoker. Never have "yearn" Alcohol Use Drinks/Week oz/Week Comments Yes 4 Glasses of wine 0.0 drinks wine everyday 4 Shots of liquor Sex Assigned at Date Recorded Male 03/30/2018 7:43 AM [employer] IN WORK[employer] Job Start Date Occupation Industry Not on file Not on file Not on file Travel History Travel Start Travel End No recent travel history available. documented as of this encounter Last Filed Vital Signs Vital Sign Reading Time Taken Comments Blood Pressure 131/59 2018 9:02 AM CDT Pulse 58 2018 9:02 AM CDT Temperature - - Respiratory Rate - - Oxygen Saturation - - Inhaled Oxygen Concentration - - Weight 79.8 kg (176 lb) 2018 9:02 AM CDT Height 165.1 cm (5' 5") 2018 9:02 AM CDT Body Mass Index 29.29 2018 9:02 AM CDT documented in this encounter Progress Notes Yossi Flanagan MD - 2018 8:50 AM CDT Referring Physician Romel Chen MD [address] [place] [address] Patient Name: Scott Howe :1950 [facility] ID#:[id number] Mr. Howe is a 68 y.o. year old male who present to me for Peyronie's disease, ED and hypogonadism. He is s/p RRP with Dr. Arden Peguero. Path T2 G 3+4 N0/24. Mr Howe now takes T gel 100mg every day. He denies any skin reaction. He has noticed an improvement in his energy, libido. denies hematuria, dysuria, and urinary urgency or frequency and states has a good urinary stream. No RONAK ED an issue. Mr. Howe is still taking cialis 7mg every day and erections much better. He still has a 25 degree curvature and is stable. He does not want intervention at this time. Past Medical History: Diagnosis Date Fernandes's esophagus Colon polyps GERD (gastroesophageal reflux disease) Glaucoma HLD (hyperlipidemia) Lumbar arthropathy Neck pain, chronic Prostate cancer Saphenous vein thrombophlebitis 12/02/2009 Seasonal allergic rhinitis Transfusion history Dec 2008 I'm told, during surgery by Dr. Peguero Prostate cancer - dx 11/04/08 Hyperlipidemia Past Surgical History: Procedure Laterality Date HX AV FISTULA REPAIR HX COLONOSCOPY HX CYST REMOVAL HX ENDOSCOPY HX OTHER SURGICAL HISTORY Jan 2009 Post op veinous clotting pelvic area-I think HX RADICAL PROSTATECTOMY 2008 HX STERILIZATION 1985 pilonidal cyst removal 30 yrs previously Medications: Current Outpatient Medications: ASPIRIN, , Disp: , Rfl: atorvastatin (LIPITOR) 10 MG tablet, Take 10 mg by mouth daily., Disp: , Rfl: lansoprazole (PREVACID) 30 MG capsule, Take 1 Cap by mouth daily., Disp: 90 Cap, Rfl: 4 latanoprost (XALATAN) 0.005 % ophthalmic solution, , Disp: , Rfl: pentoxifylline (TRENTAL) 400 MG CR tablet, 1 Tab 3 times daily (with meals) ., Disp: 270 Tab, Rfl: 3 PENTOXIFYLLINE, , Disp: , Rfl: RaNITidine HCl 150 MG CAPS, Take 150 mg by mouth daily., Disp: 90 Each, Rfl : 4 tadalafil (CIALIS) 5 MG tablet, Take 1 Tab by mouth daily., Disp: 30 Tab, Rfl: 11 testosterone (TESTIM) 50 MG/5GM (1%) GEL, Apply 10 g topically daily., Disp : 30 Package, Rfl: 2 testosterone (TESTIM) 50 MG/5GM (1%) GEL, , Disp: , Rfl: tizanidine (ZANAFLEX) 4 MG tablet, , Disp: , Rfl: Outpatient Medications Prior to Visit Medication Sig Dispense Refill ASPIRIN atorvastatin Take 10 mg by mouth daily. lansoprazole Take 1 Cap by mouth daily. 90 Cap 4 latanoprost [DISCONTINUED] MULTI-VITAMINS Take 1 tablet by mouth daily. [DISCONTINUED] Multiple Vitamin (MULTIVITAMIN PO) Take by mouth. [DISCONTINUED] niacin pentoxifylline 1 Tab 3 times daily (with meals). 270 Tab 3 PENTOXIFYLLINE raNITIdine HCl Take 150 mg by mouth daily. 90 Each 4 tadalafil Take 1 Tab by mouth daily. 30 Tab 11 testosterone Apply 10 g topically daily. 30 Package 2 testosterone tizanidine No facility-administered medications prior to visit. Social History Socioeconomic History Marital status: Single Spouse name: Not on file Number of children: Not on file Years of education: Not on file Highest education level: Not on file Occupational History Not on file Social Needs Financial resource strain: Not on file Food insecurity: Worry: Not on file Inability: Not on file Transportation needs: Medical: Not on file Non-medical: Not on file Tobacco Use Smoking status: Light Tobacco Smoker Packs/day: 0.50 Years: 8.00 Pack years: 4 Types: Cigarettes Smokeless tobacco: Never Used Tobacco comment: I am more a social smoker. Never have "yearn" Substance and Sexual Activity Alcohol use: Yes Alcohol/week: 0.0 oz Types: 4 Glasses of wine, 4 Shots of liquor per week Comment: drinks wine everyday Drug use: No Sexual activity: Yes Partners: Female Comment: Vasectomy Lifestyle Physical activity: Days per week: Not on file Minutes per session: Not on file Stress: Not on file Relationships Social connections: Talks on phone: Not on file Gets together: Not on file Attends sikhism service: Not on file Active member of club or organization: Not on file Attends meetings of clubs or organizations: Not on file Relationship status: Not on file Intimate partner violence: Fear of current or ex partner: Not on file Emotionally abused: Not on file Physically abused: Not on file Forced sexual activity: Not on file Other Topics Concerns: Not on file Social History Narrative G[place] up in [place] Lives alone Has girlfriend 2013 1 daughter No grandkids yet family history includes CVA/Stroke in his father; Coronary Artery Disease in his father, paternal aunt, paternal grandfather, paternal uncle, and sister; Coronary Artery Disease (age of onset: 69) in his brother; High Cholesterol in his father, paternal uncle, and sister; Hypertension in his father; Lymphoma in his mother; Melanoma in his father. Mother - lymphoma Grandmother- cervical cancer Grandfather - prostate cancer No Known Allergies Review of Systems: GENERAL: + allergies INTEGUMENTARY: Denies rashes, eruptions, dryness, jaundice, changes in skin, hair, or nails, discoloration of skin. EYES: Denies blurred vision, double vision, pain EARS, NOSE, MOUTH AND THROAT: Denies soreness and/or redness of gums, hoarseness, difficulty in swallowing, head colds, discharges, obstruction, postnasal drip, sinus pain, earaches. MUSCULOSKELATAL: +neck pain, back pain RESPIRATORY: Denies chest pain, wheezing, cough, difficulty breathing, asthma, bronchitis, pneumonia, tuberculosis, shortness of breath, emphysema NEUROLOGIC: Denies fainting, blackouts, seizures, paralysis, tingling, tremors, memory loss , dizzy spells, stroke CARDIOVASCULAR: Denies chest pain, rheumatic fever, rapid heart beat, high blood pressure, swelling, dizziness, faintness, varicose veins, heart valve problems. ENDOCRINE: Denies thyroid trouble, fatigue, heat and cold intolerance, excessive sweating, thirst, hunger GASTROINTESTINAL: Denies nausea, vomiting, diarrhea, constipation, indigestion, food intolerance, hemorrhoids, jaundice, heartburn, diabetes, hepatitis GENITOURINARY: As per HPI HEMATOLOGIC/LYMPHATIC: Denies anemia, easy bruising or bleeding, past transfusion, swollen glands, blood clotting problems PSYCHOLOGIC: + insomnia ALLERGY/IMMUNOLOGIC: Denies food allergies, plant allergies, environmental allergies OTHER: Denies HIV/AIDS Physical Exam: GENERAL: Well developed, well nourished, in no acute distress HEAD: Normocephalic and atraumatic NEURO: LEÓN well. Patient alert and oriented x3. PSYCH: Alert and cooperative; normal mood and affect; normal attention span and concentration Most Recent Labs: Recent Results (from the past 4032 hour(s)) POCT CREATININE Collection Time: 05/04/18 12:03 PM Result Value Ref Range CREATININE, POINT OF CARE 0.9 0.6 - 1.3 mg/dL GFR CALCULATION 84 mL/min/1.73M2 TESTOSTERONE, FREE/TOTAL SHGB Collection Time: 09/26/18 9:53 AM Result Value Ref Range TESTOSTERONE, TOTAL 732 ng/dL % FREE TESTOSTERONE 2.0 % TESTOSTERONE FREE 146 pg/mL SEX HORMONE BINDING GLOBULIN 46.9 nmol/L ESTRADIOL Collection Time: 09/26/18 9:53 AM Result Value Ref Range ESTRADIOL 26.0 7.6 - 42.6 pg/mL HEMOGLOBIN AND HEMATOCRIT, BLOOD Collection Time: 09/26/18 9:53 AM Result Value Ref Range HEMOGLOBIN 15.1 13.0 - 17.7 g/dL HEMATOCRIT 45.7 37.5 - 51.0 % PSA ULTRASENSITIVE Collection Time: 09/26/18 9:53 AM Result Value Ref Range PSA <0.006 0.000 - 4.000 ng/mL Labs discussed in detail. Assessment: peyronies Cap ED hypogonadism Plan: - FU in 6 months - stronvivo continue - cialis 7mg every other day - testosterone gel 100mg every day (generic)- rx - Refill pentox documented in this encounter Plan of Treatment Date Type Specialty Care Team Description 04/03/2019 Office Visit Dermatology Rosalina Wilkinson MD [address] [place] [address] [address] [place], [place] [id number] Health Maintenance Due Date Last Done Comments MEDICARE AWV 1950 BMI FOLLOW UP PLAN 1968 AAA Screen 10/06/2015 FALL SCREEN 10/06/2015 PNEUMOVAX >=65 (PPSV23) 10/06/2015 PREVNAR >=65 (PCV13) 10/06/2015 FLU VACCINE > 6 MONTHS 09/07/2018 COLON CANCER SCREENING: COLONOSCOPY 09/27/2022 09/27/2017, 04/27/2012 TETANUS SHOT (ADULT) 09/16/2024 09/16/2014 HEPATITIS C SCREENING Completed 01/13/2017 documented as of this encounter Results Not on filedocumented in this encounter Visit Diagnoses Diagnosis Hypogonadism in male - Primary documented in this encounter Insurance Payer Benefit Plan / Subscriber ID Effective Phone Address Type Group Dates MEDICARE MEDICARE PART A xxxxxxxxxx 2015-Prese [address] Medicare & B - MEDICARE nt [id number] [place] [address] BLUE CROSS MEDICARE xxxxxxxxxxxx 2016-Prese [address] Medicare BLUE SHIELD SUPPLEMENT - nt [id number] [place] [address] documented as of this encounter Advance Directives Type Date Recorded Patient Project Architect Explanation Advance Directives and Living Will Power of Housekeeping Assistant
[2018-10-16] MEDS ORDERED: LIDOCAINE 2% MPF 5 ML VIAL ONE ×2 (09:13→10:29)
[2018-10-16] MEDS ORDERED: BUPIVACAINE 0.25% PF 10 ML VIAL ONE (09:14)
[2018-10-16] MEDS ORDERED: NA CHLORIDE 0.9% 500 ML ONE (09:14)
[2018-10-16] MEDS ORDERED: TETRACAINE HCL 0.5% 4ML OPTH ONE (09:14)
[2018-10-16] MEDS: CYCLOPENTOLATE 1% OPTH 2 ML ONE ×3 (09:32→09:46)
[2018-10-16] MEDS: PHENYLEPHRINE 10% OPTH 5ML ONE ×3 (09:32→09:46)
[2018-10-16] MEDS ORDERED: PROPOFOL 200 MG/20 ML VIAL IV ONE (10:29)
[2018-10-16] MEDS ORDERED: DUOVISC 1 KIT OPTH ONE (10:52)
[2018-10-16] MEDS ORDERED: NS 0.9% VIAL 10 ML ONE (10:52)
[2018-10-16] MEDS ORDERED: LIDOCAINE 1% MPF 2 ML AMPULE ONE (10:53)
[2018-10-16] MEDS ORDERED: MOXIFLOXACIN HCL 10 DROPS/ML **OR USE OPTH ONE (10:53)
--- NOTE | 2018-10-16 11:28 | P.BOP ---
Preoperative diagnosis: Nuclear sclerotic cataract, narrow angle and Fuch's dystrophy OS Postoperative diagnosis: Same Primary procedure: Phacoemulsification with IOL OS Estimated blood loss: None Anesthesia: Local (Subtenon's infusion with anesthesia for cataract surgery) Complications: None Implants: [id number] +26.5 Transferred to: Other (Day surgery) Condition: Good
[2018-10-16] MEDS ORDERED: BSS PLUS 500 ML BOTTLE IRR ONE (11:39)
[2018-10-16 11:46] VITALS: BP 115/68; TEMP 97.7; O2SAT 99
[2018-10-16] MEDS ORDERED: EPINEPHRINE/PF 1 MG/ML AMP ONE (13:28)
--- NOTE | 2018-10-16 21:42 | OP ---
Surgeon: Janel Flores MD Anesthesiologist: Ken Saunders CRNA and Haroldo Al MD. Preoperative Diagnosis: Nuclear sclerotic cataract, narrow angle and Fuchs corneal dystrophy left ey e. Operation Performed: Phacoemulsification with intraocular lens implant, left eye. Anesthesia: Per cataract surgery. Complications: None. Description Of Procedure: In day surgery, the patient was prepped with Betadine and draped. A conju nctival incision was made in the inferior nasal quadrant with Saundra scissors. A sub-Tenon block c onsisting of a 1:1 mixture of 2% Xylocaine and 0.25% bupivacaine was placed through the conjunctival incision with a blunt cannula. A Honan balloon was placed over the eye and the patient was transferr ed to the operating room. In the operating room the patient was prepped and draped in the usual sterile fashion for ophthalmic surgery. A lid speculum was placed in the left eye. Two paracentesis sites were made superiorly and inferiorly in the limbal cornea. Viscoat was placed in the anterior chamber and a crescent blade wa s used to make a corneal groove and tunnel, and a keratome was used to enter the anterior chamber. P rovisc was placed in the anterior chamber and a 360 degree capsulotomy was performed with a cystitome . The lens was hydrodissected with BSS and rotated freely. The lens was removed with a stop and cho p technique. 2.38 Phaco CDE was used to remove the lens. Residual cortex was removed with the irrig ation and aspiration. Provisc was placed in the capsular bag. A ZCB00 +26.5 lens was placed in the capsular bag without complications. Irrigation and aspiration was used to remove residual viscoelast ic. The paracentesis sites were hydrated with BSS. The wound and paracentesis sites were inspected and found to be watertight. Vigamox 0.07 cc was placed intracamerally at the end of the procedure. The eye was irrigated with balanced salt solution. The eye was patched with a soft cotton patch and Lovell metal shield. The patient was returned to day surgery in good condition. Comments: Conjunctival incision was created temporally and the corneal incision was started in the s clera. BSS Plus was used and extra Viscoat was used. Discharge Instructions: Mr. Howe is discharged to home in good condition and is to follow up with Macie Flores in the morning. MARIEL/MARY Voice ID: [id number] Report ID: [id number]
== END 2018-10-16 11:57 | disposition home or self-care (01) ==
LOC: OR 08:53
PROVIDERS: ATTEND Ophthalmology Retina Specialist
PROC: 08RK3JZ Replacement of Left Lens with Synthetic Substitute, Percutaneous Approach (ICD-10-PCS; principal; 2018-10-16 10:45)
DX: H25.12 Age-related nuclear cataract, left eye (principal); H18.51 Endothelial corneal dystrophy; E78.00 Pure hypercholesterolemia, unspecified; K21.9 Gastro-esophageal reflux disease without esophagitis; Z79.82 Long term (current) use of aspirin; Z85.46 Personal history of malignant neoplasm of prostate; Z87.891 Personal history of nicotine dependence; Z83.518 Family history of other specified eye disorder; Z82.49 Family history of ischemic heart disease and other diseases of the circulatory system; Z80.9 Family history of malignant neoplasm, unspecified
CPT/HCPCS: 66984; J2704; J0171; J2001

== ENCOUNTER 2022-12-08 18:35 | Inpatient (IN) | payer OTHER, BC ==
--- OUTSIDE RECORDS SUMMARY | 2022-12-08 18:40 | XMS REPORT | Continuity of Care Document ---
:1950 Author Organization [facility] t Address [address] [place] [address] Care Team Providers Name Role Phone GABRIEL MUSE Primary Care Physician Unavailable Silvia Lee Attending Clinician SILVIA ESPINO Attending Clinician Unavailable Jennifer Yoder Attending Clinician [phone] JENNIFER GARCIA Attending Clinician Unavailable Chantell Estrella MD Attending Clinician Lora Herrera MA Attending Clinician Unavailable Pauly Wasserman NP Attending Clinician PAULY WASSERMAN Attending Clinician Unavailable CHANTELL ESTRELLA Attending Clinician Unavailable ZAID ACEVEDO Attending Clinician Unavailable ZAID ACEVEDO Admitting Clinician Unavailable Payers Payer Name Policy Type Policy Number Effective Date Expiration Date S [facility] [place] A B [id number] 2015 00:00:00 [id number] 2016 OS 00:00:00 Problems Condition Condition Condition Status Onset Resolution Last Treating Co mments Source Name Details Category Date Date Treatment Clinician Date Liver cyst Liver cyst Disease [facility] 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 Diagnosed in 2014 on liver US and confirmed on CT. Findings are suggestiv e of simple cysts. No biliary dilatatio n and on other cysts on spleen, pancreas or kidneys. Some of the cysts are larger than before. Patient is asymptoma tic and doesn't complain of constitut ional symptoms. We will check tumor markers and check liver MRI in 3-4 months for further evaluatio n. Immunity Immunity Disease Active 2016-02 Last [facility]: t & Plan: Medic al 00 [facility] g of this note might be different from the original. CDC recommend s that all patients with chronic liver disease, regardles s of etiology, should be immunized to prevent hepatitis A and hepatitis B if they are not already immune. This should be done in addition to other age-appro priate vaccines. We will test for immunity to both viruses - vaccine recommend ations will follow. Class 1 Class 1 Disease Active 2016-[address] obesity in obesity in 03-16 [facility] adult adult 00:00: t & Plan: Medical 00 [facility] g of this note might be different from the original. Body mass index is 30.18 kg/(m^2). Obesity is an establish ed risk factor for vascular complicat ions (ie coronary artery disease, cerebrova scular disease, periphera l vascular disease), osteoarth ritis, pulmonary disease, as well as the developme nt of non-alcoh olic fatty liver disease and the risk for non-alcoh olic steatohep atitis. We have recommend ed a structure d weight loss program (10% body weight initially ), along with dietary modificat ions and regular exercise for overall good health and to minimize the risk of obesity -related complicat ions. Allergies, Adverse Reactions, Alerts Allergy Allergy Status Severity Reaction(s) Onset Inactive Treating Comm ents Source Name Type Date Date Clinician NO KNOWN Allergy Active [facility] Family History Family Member Diagnosis Comments Start Date Stop Date Source Natural father Atrial fibrillation C [facility] Natural father Heart disease [facility] Natural father Stroke [facility] Natural mother Lymphoma [facility] Social History Social Habit Start Date Stop Date Quantity Comments Source History SDOH [facility] Alcohol Frequency [facility] Center History SDOH [facility] Alcohol Std Drinks [facility] History SDMT [facility] Alcohol Binge Medical [facility] [facility] Alcohol intake 2022-05-25 2022-05-25 [facility] (finding) Tobacco Comment 2022-05-25 2022-05-[address] [facility] [address] [facility] 00:[facility]:00 00:00:00 [facility] Cigarettes smoked 2022-05-25 2022-05-[address] [facility] current (pack per 00:00:00 00:00:00 Medical Center day) - Reported Tobacco use and 2022-05-25 2022-05-[address] [facility] exposure 00:00:00 00:00:00 non-user Medical Center Alcohol Comment 2017-01-13 2017-01-13 scothch/wine [facility] 00:00:00 00:00:00 2-4/week Medical Center History of tobacco 1989-09-[address] [facility] use 00:00:00 [facility] Sex Assigned At 1950 [address] [facility] 00:00:00 00:00:00 Medical Center Smoking Status Start Date Stop Date Source Ex-smoker 2022-05-25 00:00:00 2022-05-25 00:00:00 [facility] Medications Ordered Filled Start Stop Current Ordering Indication Dosage Frequency Signature Comments Components Source Medication Medication Date Date Medication? Clinician (SIG) Name Name Missing or 2022- No Cream [facility] 18 -18 [facility] 13:44: 00:00 3 clicks Medical Medication 12 :00 daily . Center Missing or 2022- No Cream [facility] Non-Formula 18 -18 [facility] 13:44: 00:00 3 clicks Medical Medication 12 :00 daily . Center Missing or 2022- No Cream [facility] Non-Formula 18 -18 [facility] 13:44: 00:00 3 clicks Medical Medication 12 :00 daily . Center Missing or 2022- No Cream [facility] Non-Formula 18 -18 [facility] 13:44: 00:00 3 clicks Medical Medication 12 :00 daily . Center Missing or 2022- No Cream [facility] Non-Formula 18 -18 [facility] 13:44: 00:00 3 clicks Medical Medication 12 :00 daily . Center Missing or 2022- No Cream [facility] Non-Formula 18 -18 [facility] 13:44: 00:00 3 clicks Medical Medication 12 :00 daily . Center Missing or 2022- No Q.5D 2 (two) [facility] Non-Formula 4-18 04-18 times [facility] ry 13:44: 00:00 daily Medical Medication 09 :[address] UPPLEMENT . Missing or 2022- No Q.5D 2 (two) [facility] Non-Formula 4-18 04-18 times [facility] ry 13:44: 00:00 daily Medical Medication 09 :[address] UPPLEMENT . Missing or 2022- No Q.5D 2 (two) [facility] Non-Formula 4-18 04-18 times [facility] ry 13:44: 00:00 daily Medical Medication 09 :[address] UPPLEMENT . Missing or 2022- No Q.5D 2 (two) [facility] Non-Formula 4-18 04-18 times [facility] ry 13:44: 00:00 daily Medical Medication 09 :[address] UPPLEMENT . Missing or 2022- No Q.5D 2 (two) [facility] Non-Formula 4-18 04-18 times [facility] ry 13:44: 00:00 daily Medical Medication 09 :[address] UPPLEMENT . Missing or 2022- No Q.5D 2 (two) [facility] Non-Formula 4-18 04-18 times [facility] ry 13:44: 00:00 daily Medical Medication 09 :[address] UPPLEMENT . atorvastati Yes 10mg QD Take [address] n (LIPITOR) 4-08 by mouth [facility] 10 MG 12:06: daily. Medical tablet 11 Center aspirin 81 Yes 81mg QD Take [address] MG EC 4-08 by mouth [facility] tablet 12:06: daily. Medical 11 Center b complex Yes 1{tbl} QD Take [address] vitamins 4-08 tablet by [facility] tablet 12:06: mouth Medical 11 daily. [place] TiZANidine Yes 4mg QD Take [address] (ZANAFLEX) 4-08 by mouth [facility] 4 MG 12:06: nightly . Medical capsule 11 Center pentoxifyll Yes 400mg Take [address] ine 4-08 mg by [facility] (TRENTAL) 12:06: mouth 3 Medic al 400 mg CR 11 (three) Center tablet times daily with meals. multivitami Yes 1{tbl} QD Take [address] n per 4-08 tablet by [facility] tablet 12:06: mouth Medical 11 daily. [place] tadalafil Yes 7mg Take [address] (CIALIS) 5 4-08 by mouth [facility] MG tablet 12:06: daily as Medi milan 11 needed for Center Erectile Dysfunctio n . VITAMIN B Yes 1{tbl} QD Take [address] COMPLEX/ZIN 4-08 tablet by Yvonne dorcas C (B 12:06: mouth Medical COMPLEX-ZIN 11 daily. Center C ORAL) pramipexole Yes .25mg QD Take 0.[address] (MIRAPEX) 4-08 mg by [facility] 0.25 MG 12:06: mouth Medical tablet 11 nightly. [place] lansoprazol Yes 30mg QD Take [address] [facility] e 4-08 by mouth [facility] (PREVACID) 12:06: daily. Medic al 30 MG 11 Center capsule atorvastati Yes 10mg QD Take [address] n (LIPITOR) 4-08 by mouth [facility] 10 MG 12:06: daily. Medical tablet 11 Center aspirin 81 Yes 81mg QD Take [address] MG EC 4-08 by mouth [facility] tablet 12:06: daily. Medical 11 Center b complex Yes 1{tbl} QD Take [address] vitamins 4-08 tablet by [facility] tablet 12:06: mouth Medical 11 daily. [place] TiZANidine Yes 4mg QD Take [address] (ZANAFLEX) 4-08 by mouth [facility] 4 MG 12:06: nightly . Medical capsule 11 [place] pentoxifyll Yes 400mg Take [address] ine 4-08 mg by [facility] (TRENTAL) 12:06: mouth 3 Medic al 400 mg CR 11 (three) Center tablet times daily with meals. multivitami Yes 1{tbl} QD Take [address] n per 4-08 tablet by [facility] tablet 12:06: mouth Medical 11 daily. [place] tadalafil Yes 7mg Take [address] (CIALIS) 5 4-08 by mouth [facility] MG tablet 12:06: daily as Medi milan 11 needed for Center Erectile Dysfunctio n . VITAMIN B Yes 1{tbl} QD Take [address] COMPLEX/ZIN 4-08 tablet by Yvonne es C (B 12:06: mouth Medical COMPLEX-ZIN 11 daily. Center C ORAL) pramipexole Yes .25mg QD Take 0.[address] (MIRAPEX) 4-08 mg by [facility] 0.25 MG 12:06: mouth Medical tablet 11 nightly. [place] lansoprazol Yes 30mg QD Take [address] [facility] e 4-08 by mouth [facility] (PREVACID) 12:06: daily. Medic al 30 MG 11 Center capsule atorvastati Yes 10mg QD Take [address] n (LIPITOR) 4-08 by mouth [facility] 10 MG 12:06: daily. Medical tablet 11 Center aspirin 81 Yes 81mg QD Take [address] MG EC 4-08 by mouth [facility] tablet 12:06: daily. Medical 11 Center b complex Yes 1{tbl} QD Take [address] vitamins 4-08 tablet by [facility] tablet 12:06: mouth Medical 11 daily. [place] TiZANidine Yes 4mg QD Take [address] (ZANAFLEX) 4-08 by mouth [facility] 4 MG 12:06: nightly . Medical capsule 11 [place] pentoxifyll Yes 400mg Take [address] ine 4-08 mg by [facility] (TRENTAL) 12:06: mouth 3 Medic al 400 mg CR 11 (three) Center tablet times daily with meals. multivitami Yes 1{tbl} QD Take [address] n per 4-08 tablet by [facility] tablet 12:06: mouth Medical 11 daily. [place] tadalafil Yes 7mg Take [address] (CIALIS) 5 4-08 by mouth [facility] MG tablet 12:06: daily as Medi milan 11 needed for Center Erectile Dysfunctio n . VITAMIN B Yes 1{tbl} QD Take [address] COMPLEX/ZIN 4-08 tablet by Yvonne Armstrong (B 12:06: mouth Medical COMPLEX-ZIN 11 daily. Center C ORAL) pramipexole Yes .25mg QD Take 0.[address] (MIRAPEX) 4-08 mg by [facility] 0.25 MG 12:06: mouth Medical tablet 11 nightly. [place] lansoprazol Yes 30mg QD Take [address] [facility] e 4-08 by mouth [facility] (PREVACID) 12:06: daily. Medic al 30 MG 11 [place] capsule atorvastati Yes 10mg QD Take [address] n (LIPITOR) 4-08 by mouth [facility] 10 MG 12:06: daily. Medical tablet 11 Center aspirin 81 Yes 81mg QD Take [address] MG EC 4-08 by mouth [facility] tablet 12:06: daily. Medical 11 Center b complex Yes 1{tbl} QD Take [address] vitamins 4-08 tablet by [facility] tablet 12:06: mouth Medical 11 daily. Center TiZANidine Yes 4mg QD Take [address] (ZANAFLEX) 4-08 by mouth [facility] 4 MG 12:06: nightly . Medical capsule 11 Center pentoxifyll Yes 400mg Take [address] ine 4-08 mg by [facility] (TRENTAL) 12:06: mouth 3 Medic al 400 mg CR 11 (three) Center tablet times daily with meals. multivitami Yes 1{tbl} QD Take [address] n per 4-08 tablet by [facility] tablet 12:06: mouth Medical 11 daily. [place] tadalafil Yes 7mg Take [address] (CIALIS) 5 4-08 by mouth [facility] MG tablet 12:06: daily as Medi milan 11 needed for Center Erectile Dysfunctio n . VITAMIN B Yes 1{tbl} QD Take [address] COMPLEX/ZIN 4-08 tablet by Yvonne Armstrong (B 12:06: mouth Medical COMPLEX-ZIN 11 daily. Center C ORAL) pramipexole Yes .25mg QD Take 0.[address] (MIRAPEX) 4-08 mg by [facility] 0.25 MG 12:06: mouth Medical tablet 11 nightly. [place] lansoprazol Yes 30mg QD Take [address] [facility] [facility] e 4-08 by mouth [facility] (PREVACID) 12:06: daily. Medic al 30 MG 11 Center capsule atorvastati Yes 10mg QD Take [address] n (LIPITOR) 4-08 by mouth [facility] 10 MG 12:06: daily. Medical tablet 11 Center aspirin 81 Yes 81mg QD Take [address] MG EC 4-08 by mouth [facility] tablet 12:06: daily. Medical 11 Center b complex Yes 1{tbl} QD Take [address] vitamins 4-08 tablet by [facility] tablet 12:06: mouth Medical 11 daily. Center TiZANidine Yes 4mg QD Take [address] (ZANAFLEX) 4-08 by mouth [facility] 4 MG 12:06: nightly . Medical capsule 11 Center pentoxifyll Yes 400mg Take [address] ine 4-08 mg by [facility] (TRENTAL) 12:06: mouth 3 Medic al 400 mg CR 11 (three) Center tablet times daily with meals. multivitami Yes 1{tbl} QD Take [address] n per 4-08 tablet by [facility] tablet 12:06: mouth Medical 11 daily. Center tadalafil Yes 7mg Take [address] (CIALIS) 5 4-08 by mouth [facility] MG tablet 12:06: daily as Medi milan 11 needed for Center Erectile Dysfunctio n . VITAMIN B Yes 1{tbl} QD Take [address] COMPLEX/ZIN 4-08 tablet by Yvonne Armstrong (B 12:06: mouth Medical COMPLEX-ZIN 11 daily. Center C ORAL) pramipexole Yes .25mg QD Take 0.[address] (MIRAPEX) 4-08 mg by [facility] 0.25 MG 12:06: mouth Medical tablet 11 nightly. [place] lansoprazol Yes 30mg QD Take [address] [facility] e 4-08 by mouth [facility] (PREVACID) 12:06: daily. Medic al 30 MG 11 [place] capsule atorvastati Yes 10mg QD Take [address] n (LIPITOR) 4-08 by mouth [facility] 10 MG 12:06: daily. Medical tablet 11 Center aspirin 81 Yes 81mg QD Take [address] MG EC 4-08 by mouth [facility] tablet 12:06: daily. Medical 11 Center b complex Yes 1{tbl} QD Take [address] vitamins 4-08 tablet by [facility] tablet 12:06: mouth Medical 11 daily. Center TiZANidine Yes 4mg QD Take [address] (ZANAFLEX) 4-08 by mouth [facility] 4 MG 12:06: nightly . Medical capsule 11 Center pentoxifyll Yes 400mg Take [address] ine 4-08 mg by [facility] (TRENTAL) 12:06: mouth 3 Medic al 400 mg CR 11 (three) Center tablet times daily with meals. multivitami Yes 1{tbl} QD Take [address] n per 4-08 tablet by [facility] tablet 12:06: mouth Medical 11 daily. [place] tadalafil Yes 7mg Take [address] (CIALIS) 5 4-08 by mouth [facility] MG tablet 12:06: daily as Medi milan 11 needed for Center Erectile Dysfunctio n . VITAMIN B Yes 1{tbl} QD Take [address] COMPLEX/ZIN 4-08 tablet by Yvonne dorcas Armstrong (B 12:06: mouth Medical COMPLEX-ZIN 11 daily. Center C ORAL) Missing or Yes Q.5D 2 (two) [facility] Non-Formula 4-08 times [facility] ry 12:06: daily Medical Medication [address] UPPLEMENT . pramipexole Yes .25mg QD Take 0.[address] (MIRAPEX) 4-08 mg by [facility] 0.25 MG 12:06: mouth Medical tablet 11 nightly. [place] lansoprazol Yes 30mg QD Take [address] [facility] [facility] e 4-08 by mouth [facility] (PREVACID) 12:06: daily. Medic al 30 MG 11 Center capsule Missing or Yes Cream [facility] Non-Formula 4-08 [facility] [place] [facility] ry 12:06: 3 clicks Medical Medication 11 daily . [place] atorvastati Yes 10mg QD Take [address] n (LIPITOR) 4-08 by mouth [facility] 10 MG 12:06: daily. Medical tablet 11 Center aspirin 81 Yes 81mg QD Take [address] MG EC 4-08 by mouth [facility] tablet 12:06: daily. Medical 11 [place] b complex Yes 1{tbl} QD Take [address] vitamins 4-08 tablet by [facility] tablet 12:06: mouth Medical 11 daily. [place] TiZANidine Yes 4mg QD Take [address] (ZANAFLEX) 4-08 by mouth [facility] 4 MG 12:06: nightly . Medical capsule 11 Center pentoxifyll Yes 400mg Take [address] ine 4-08 mg by [facility]ukes (TRENTAL) 12:06: mouth 3 Medic al 400 mg CR 11 (three) Center tablet times daily with meals. multivitami Yes 1{tbl} QD Take [address] n per 4-08 tablet by [facility] tablet 12:06: mouth Medical 11 daily. Center tadalafil Yes 7mg Take [address] (CIALIS) 5 4-08 by mouth [facility] MG tablet 12:06: daily as Medi milan 11 needed for Center Erectile Dysfunctio n . VITAMIN B Yes 1{tbl} QD Take [address] COMPLEX/ZIN 4-08 tablet by Yvonne toscano C (B 12:06: mouth Medical COMPLEX-ZIN 11 daily. Center C ORAL) pramipexole Yes .25mg QD Take 0.[address] (MIRAPEX) 4-08 mg by [facility]ukes 0.25 MG 12:06: mouth Medical tablet 11 nightly. [place] lansoprazol Yes 30mg QD Take [address] [facility] e 4-08 by mouth [facility] (PREVACID) 12:06: daily. Medic al 30 MG 11 Center capsule Vital Signs Vital Name Observation Time Observation Value Comments Source HEIGHT 2022-05-25 09:05:00 162.6 cm WEIGHT 2022-05-25 09:05:00 80.967 kg HEIGHT 2022-05-25 09:05:00 162.6 cm WEIGHT 2022-05-25 09:05:00 80.967 kg HEIGHT 2022-05-25 09:05:00 162.6 cm WEIGHT 2022-05-25 09:05:00 80.967 kg WEIGHT 2021-05-19 09:01:00 78.744 kg HEIGHT 2021-05-19 09:01:00 165.1 cm WEIGHT 2021-05-19 09:01:00 78.744 kg HEIGHT 2021-05-19 09:01:00 165.1 cm HEIGHT 2020-05-15 11:06:00 165.1 cm WEIGHT 2020-05-15 11:06:00 79.47 kg Body height 2022-05-25 09:05:[address] [facility] Body weight 2022-05-25 09:05:00 80.967 kg [facility] BMI 2022-05-25 09:05:00 30.64 kg/m2 [facility] Oxygen saturation in 2022-05-25 09:05:00 100 /min [facility] Arterial blood by Medical Ce nter Pulse oximetry Systolic blood 2022-05-25 09:05:00 137 mm[Hg] [facility] Diastolic blood 2022-05-25 09:05:00 83 mm[Hg] [facility] Heart rate 2022-05-25 09:05:00 61 /min [facility] Body temperature 2022-05-25 09:05:00 36.67 [facility] Respiratory rate 2022-05-25 09:05:00 18 /[facility] Systolic blood 2021-05-19 09:01:00 137 mm[Hg] [facility] Diastolic blood 2021-05-19 09:01:00 79 mm[Hg] [facility] Heart rate 2021-05-19 09:01:00 66 /min [facility] Body temperature 2021-05-19 09:01:00 36.5 [facility] Body height 2021-05-19 09:01:00 165.1 cm [facility] Body weight 2021-05-19 09:01:00 78.744 kg [facility] BMI 2021-05-19 09:01:00 28.89 kg/m2 [facility] Oxygen saturation in 2021-05-19 09:01:00 97 /min [facility] Arterial blood by Medical Ce nter Pulse oximetry Procedures Procedure Date / Time Performed Performing Clinician Sourc e MR ABDOMEN WITH & 2022-05-18 10:00:00 Jennifer Garcia [facility] WITHOUT IV CONTRAST Medical Cent er BASIC METABOLIC PANEL 2022-05-10 07:13:00 Jose Line [facility] HEPATIC FUNCTION PANEL 2022-05-10 07:13:00 Jennifer Garciau p [facility] CBC W/PLT COUNT & AUTO 2022-05-10 07:13:[address] [facility] MR ABDOMEN WITH & 2021-04-13 11:09:[address] [facility] WITHOUT IV CONTRAST Medical Cent er BASIC METABOLIC PANEL 2021-04-10 08:38:00 Pauly Wasserman [facility] HEPATIC FUNCTION PANEL 2021-04-10 08:38:00 Pauly Wasserman [facility] CBC W/PLT COUNT & AUTO 2021-04-10 08:38:[address] [facility] Plan of Care Planned Activity Planned Date Details Comments Source Future Scheduled 2027-09-28 Screening for malignant [facility] Test 00:00:00 neoplasm of colon Medical Ce nter (procedure) [code = 989004513] Future Scheduled 2027-09-28 Screening for malignant [facility] Test 00:00:00 neoplasm of colon Medical Ce nter (procedure) [code = 236123335] Future Scheduled 2027-09-28 Screening for malignant [facility] Test 00:00:00 neoplasm of colon Medical Ce nter (procedure) [code = 307298327] Future Scheduled 2027-09-28 Screening for malignant [facility] Test 00:00:00 neoplasm of colon Medical Ce nter (procedure) [code = 090126963] Future Scheduled 2027-09-28 Screening for malignant [facility] Test 00:00:00 neoplasm of colon Medical Ce nter (procedure) [code = 542856917] Future Scheduled 2027-09-28 Screening for malignant [facility] Test 00:00:00 neoplasm of colon Medical Ce nter (procedure) [code = 386108639] Future Scheduled 2027-09-28 Screening for malignant [facility] Test 00:00:00 neoplasm of colon Medical Ce nter (procedure) [code = 069599025] Future Scheduled 2027-09-28 Screening for malignant [facility] Test 00:00:00 neoplasm of colon Medical Ce nter (procedure) [code = 278970045] Future Scheduled 2027-09-28 Screening for malignant [facility] Test 00:00:00 neoplasm of colon Medical Ce nter (procedure) [code = 030066120] Future Scheduled 2027-09-28 Screening for malignant [facility] Test 00:00:00 neoplasm of colon Medical Ce nter (procedure) [code = 026989606] Future Scheduled 2027-09-28 Screening for malignant [facility] Test 00:00:00 neoplasm of colon Medical Ce nter (procedure) [code = 961287888] Future Scheduled 2027-09-28 Screening for malignant [facility] Test 00:00:00 neoplasm of colon Medical Ce nter (procedure) [code = 811137870] Future Scheduled 2027-09-28 Screening for malignant [facility] Test 00:00:00 neoplasm of colon Medical Ce nter (procedure) [code = 927640084] Future Scheduled 2027-09-28 Screening for malignant [facility] Test 00:00:00 neoplasm of colon Medical Ce nter (procedure) [code = 038377757] Future Scheduled 2024-09-16 DTAP/TDAP/TD VACCINES [facility] 00:00:00 (2 - Td or Tdap) [code Medic al Center = DTAP/TDAP/TD VACCINES (2 - Td or Tdap)] Future Scheduled 2024-09-16 DTAP/TDAP/TD VACCINES [facility] Test 00:00:00 (2 - Td or Tdap) [code Medic al Center = DTAP/TDAP/TD VACCINES (2 - Td or Tdap)] Future Scheduled 2024-09-16 DTAP/TDAP/TD VACCINES [facility] Test 00:00:00 (2 - Td or Tdap) [code Medic al Center = DTAP/TDAP/TD VACCINES (2 - Td or Tdap)] Future Scheduled 2024-09-16 DTAP/TDAP/TD VACCINES [facility] Test 00:00:00 (2 - Td or Tdap) [code Medic al Center = DTAP/TDAP/TD VACCINES (2 - Td or Tdap)] Future Scheduled 2024-09-16 DTAP/TDAP/TD VACCINES [facility] Test 00:00:00 (2 - Td or Tdap) [code Medic al Center = DTAP/TDAP/TD VACCINES (2 - Td or Tdap)] Future Scheduled 2024-09-16 DTAP/TDAP/TD VACCINES [facility] Test 00:00:00 (2 - Td or Tdap) [code Medic al Center = DTAP/TDAP/TD VACCINES (2 - Td or Tdap)] Future Scheduled 2024-09-16 DTAP/TDAP/TD VACCINES [facility] Test 00:00:00 (2 - Td or Tdap) [code Medic al Center = DTAP/TDAP/TD VACCINES (2 - Td or Tdap)] Future Scheduled 2023-05-[address] [facility] Test 00:00:00 Counseling and Medical Cente r Screening (12+) [code = Tobacco Cessation Counseling and Screening (12+)] Future Scheduled 2023-05-[address] [facility] Test 00:00:00 Counseling and Medical Cente r Screening (12+) [code = Tobacco Cessation Counseling and Screening (12+)] Future Scheduled 2023-05-[address] [facility] Test 00:00:00 Counseling and Medical Cente r Screening (12+) [code = Tobacco Cessation Counseling and Screening (12+)] Future Scheduled 2023-05-[address] [facility] Test 00:00:00 Counseling and Medical Cente r Screening (12+) [code = Tobacco Cessation Counseling and Screening (12+)] Future Scheduled 2023-05-[address] [facility] Test 00:00:00 Counseling and Medical Cente r Screening (12+) [code = Tobacco Cessation Counseling and Screening (12+)] Future Scheduled 2023-05-[address] [facility] Test 00:00:00 Counseling and Medical Cente r Screening (12+) [code = Tobacco Cessation Counseling and Screening (12+)] Future Scheduled 2022-10-[address] [facility] Test 00:00:00 (Season Ended) [code = Medic al Center INFLUENZA VACCINE (Season Ended)] Future Scheduled 2022-10-08 Influenza Vaccine (#1) [facility] 00:00:00 [code = Influenza Medical Ce nter Vaccine (#1)] Future Scheduled 2022-10-08 Influenza Vaccine (#1) [facility] 00:00:00 [code = Influenza Medical Ce nter Vaccine (#1)] Future Scheduled 2022-10-08 Influenza Vaccine (#1) [facility] 00:00:00 [code = Influenza Medical Ce nter Vaccine (#1)] Future Scheduled 2022-10-08 Influenza Vaccine (#1) [facility] 00:00:00 [code = Influenza Medical Ce nter Vaccine (#1)] Future Scheduled 2022-10-08 Influenza Vaccine (#1) [facility] 00:00:00 [code = Influenza Medical Ce nter Vaccine (#1)] Future Scheduled 2022-05-[address] [facility] 00:00:00 Counseling and Medical Cente r Screening (12+) [code = Tobacco Cessation Counseling and Screening (12+)] Future Scheduled 2022-02-[address] [facility] 00:00:00 (12+) [code = Medical Center DEPRESSION SCREENING (12+)] Future Scheduled 2022-02-07 FALLS RISK SCREENING [facility] 00:00:00 [code = FALLS RISK Medical C enter SCREENING] Future Scheduled 2022-02-[address] [facility] 00:00:00 (12+) [code = Medical Center DEPRESSION SCREENING (12+)] Future Scheduled 2022-02-07 FALLS RISK SCREENING [facility] 00:00:00 [code = FALLS RISK Medical C enter SCREENING] Future Scheduled 2022-02-[address] [facility] 00:00:00 (12+) [code = Medical Center DEPRESSION SCREENING (12+)] Future Scheduled 2022-02-07 FALLS RISK SCREENING [facility] 00:00:00 [code = FALLS RISK Medical C enter SCREENING] Future Scheduled 2022-02-[address] [facility] 00:00:00 (12+) [code = Medical Center DEPRESSION SCREENING (12+)] Future Scheduled 2022-02-07 FALLS RISK SCREENING [facility] 00:00:00 [code = FALLS RISK Medical C enter SCREENING] Future Scheduled 2022-02-[address] [facility] 00:00:00 (12+) [code = Medical Center DEPRESSION SCREENING (12+)] Future Scheduled 2022-02-07 FALLS RISK SCREENING [facility] 00:00:00 [code = FALLS RISK Medical C enter SCREENING] Future Scheduled 2022-02-[address] [facility] 00:00:00 (12+) [code = Medical Center DEPRESSION SCREENING (12+)] Future Scheduled 2022-02-07 FALLS RISK SCREENING [facility] 00:00:00 [code = FALLS RISK Medical C enter SCREENING] Future Scheduled 2022-02-[address] [facility] 00:00:00 (12+) [code = Medical Center DEPRESSION SCREENING (12+)] Future Scheduled 2022-02-07 FALLS RISK SCREENING [facility] 00:00:00 [code = FALLS RISK Medical C enter SCREENING] Future Scheduled 2021-10-08 INFLUENZA VACCINE (#1) [facility] [code = INFLUENZA Medical Ce nter VACCINE (#1)] Future Scheduled 2021-03-17 COVID-19 VACCINE (4 - [facility]00 Booster for Pfizer Medical C enter series) [code = COVID-19 VACCINE (4 - Booster for Pfizer series)] Future Scheduled 2021-01-09 COVID-19 VACCINE (4 - [facility]:00 Booster for Pfizer Medical C enter series) [code = COVID-19 VACCINE (4 - Booster for Pfizer series)] Future Scheduled 2021-01-09 COVID-19 VACCINE (4 - [facility]:00 Booster for Pfizer Medical C enter series) [code = COVID-19 VACCINE (4 - Booster for Pfizer series)] Future Scheduled 2021-01-09 COVID-19 VACCINE (4 - [facility]:00 Booster for Pfizer Medical C enter series) [code = COVID-19 VACCINE (4 - Booster for Pfizer series)] Future Scheduled 2021-01-09 COVID-19 VACCINE (4 - [facility]:00 Booster for Pfizer Medical C enter series) [code = COVID-19 VACCINE (4 - Booster for Pfizer series)] Future Scheduled 2021-01-09 COVID-19 VACCINE (4 - [facility]:00 Booster for Pfizer Medical C enter series) [code = COVID-19 VACCINE (4 - Booster for Pfizer series)] Future Scheduled 2021-01-09 COVID-19 VACCINE (4 - [facility]:00 Booster for Pfizer Medical C enter series) [code = COVID-19 VACCINE (4 - Booster for Pfizer series)] Future Scheduled 2016-09-[address] [facility] 00:00:00 WELLNESS (YEAR 2 or Medical Center FIRST YEAR if no IPPE) [code = MEDICARE ANNUAL WELLNESS (YEAR 2 or FIRST YEAR if no IPPE)] Future Scheduled 2016-09-[address] [facility] 00:00:00 WELLNESS (YEAR 2 or Medical Center FIRST YEAR if no IPPE) [code = MEDICARE ANNUAL WELLNESS (YEAR 2 or FIRST YEAR if no IPPE)] Future Scheduled 2016-09-[address] [facility] 00:00:00 WELLNESS (YEAR 2 or Medical Center FIRST YEAR if no IPPE) [code = MEDICARE ANNUAL WELLNESS (YEAR 2 or FIRST YEAR if no IPPE)] Future Scheduled 2016-09-[address] [facility] 00:00:00 WELLNESS (YEAR 2 or Medical Center FIRST YEAR if no IPPE) [code = MEDICARE ANNUAL WELLNESS (YEAR 2 or FIRST YEAR if no IPPE)] Future Scheduled 2016-09-[address] [facility] 00:00:00 WELLNESS (YEAR 2 or Medical Center FIRST YEAR if no IPPE) [code = MEDICARE ANNUAL WELLNESS (YEAR 2 or FIRST YEAR if no IPPE)] Future Scheduled 2016-09-[address] [facility] 00:00:00 WELLNESS (YEAR 2 or Medical Center FIRST YEAR if no IPPE) [code = MEDICARE ANNUAL WELLNESS (YEAR 2 or FIRST YEAR if no IPPE)] Future Scheduled 2016-09-[address] [facility] 00:00:00 WELLNESS (YEAR 2 or Medical Center FIRST YEAR if no IPPE) [code = MEDICARE ANNUAL WELLNESS (YEAR 2 or FIRST YEAR if no IPPE)] Future Scheduled 2015-10-[address] [facility] 00:00:00 aneurysm screening Medical C enter (procedure) [code = 073481002] Future Scheduled 2015-10-06 PNEUMOCOCCAL 65+ YRS ([address] [facility] 00:00:00 - PCV) [code = Medical Cente r PNEUMOCOCCAL 65+ YRS (1 - PCV)] Future Scheduled 2015-10-[address] [facility] 00:00:00 aneurysm screening Medical C enter (procedure) [code = [id number]] Future Scheduled 2015-10-06 PNEUMOCOCCAL 65+ YRS ([address] [facility] 00:00:00 - PCV) [code = Medical Cente r PNEUMOCOCCAL 65+ YRS (1 - PCV)] Future Scheduled 2015-10-[address] [facility] 00:00:00 aneurysm screening Medical C enter (procedure) [code = 410319402] Future Scheduled 2015-10-06 PNEUMOCOCCAL 65+ YRS ([address] [facility] 00:00:00 - PCV) [code = Medical Cente r PNEUMOCOCCAL 65+ YRS (1 - PCV)] Future Scheduled 2015-10-[address] [facility] 00:00:00 aneurysm screening Medical C enter (procedure) [code = 191624687] Future Scheduled 2015-10-06 PNEUMOCOCCAL 65+ YRS ([address] [facility] 00:00:00 - PCV) [code = Medical Cente r PNEUMOCOCCAL 65+ YRS (1 - PCV)] Future Scheduled 2015-10-[address] [facility] 00:00:00 aneurysm screening Medical C enter (procedure) [code = 907083315] Future Scheduled 2015-10-06 PNEUMOCOCCAL 65+ YRS ([address] [facility] 00:00:00 - PCV) [code = Medical Cente r PNEUMOCOCCAL 65+ YRS (1 - PCV)] Future Scheduled 2015-10-[address] [facility] 00:00:00 aneurysm screening Medical C enter (procedure) [code = 311713006] Future Scheduled 2015-10-06 PNEUMOCOCCAL 65+ YRS ([address] [facility] 00:00:00 - PCV) [code = Medical Cente r PNEUMOCOCCAL 65+ YRS (1 - PCV)] Future Scheduled 2015-10-[address] [facility] 00:00:00 aneurysm screening Medical C enter (procedure) [code = 287414200] Future Scheduled 2015-10-06 PNEUMOCOCCAL 65+ YRS ([address] [facility] 00:00:00 - PCV) [code = Medical Cente r PNEUMOCOCCAL 65+ YRS (1 - PCV)] Future Scheduled 2000 SHINGLES VACCINES ([address] [facility] 00:00:00 2) [code = [facility] VACCINES (1 of 2)] Future Scheduled 2000 SHINGLES VACCINES ([address] [facility] 00:00:00 2) [code = SHINGLES Medical Center VACCINES (1 of 2)] Future Scheduled 2000 SHINGLES VACCINES ([address] [facility] 00:00:00 2) [code = SHINGLES Medical Center VACCINES (1 of 2)] Future Scheduled 2000 SHINGLES VACCINES ([address] [facility] 00:00:00 2) [code = SHINGLES Medical Center VACCINES (1 of 2)] Future Scheduled 2000 SHINGLES VACCINES ([address] [facility] 00:00:00 2) [code = SHINGLES Medical Center VACCINES (1 of 2)] Future Scheduled 2000 SHINGLES VACCINES ([address] [facility] 00:00:00 2) [code = SHINGLES Medical Center VACCINES (1 of 2)] Future Scheduled 2000 SHINGLES VACCINES ([address] [facility] 00:00:00 2) [code = SHINGLES Medical Center VACCINES (1 of 2)] Future Scheduled 1950 CT Colonography (combo) [facility] 00:00:00 [code = CT Colonography [facility] (combo)] Future Scheduled 1950 Screening for malignant [facility] 00:00:00 neoplasm of colon Medical Ce nter (procedure) [code = 843357456] Future Scheduled 1950 Screening for malignant [facility] 00:00:00 neoplasm of colon Medical Ce nter (procedure) [code = 302915237] Future Scheduled 1950 Sigmoidoscopy [code = [facility] S[facility]oidoscopy] Medical Cente r Future Scheduled 1950 CT Colonography (combo) [facility] 00:00:00 [code = [facility] Future Scheduled 1950 Screening for malignant [facility] 00:00:00 neoplasm of colon Medical Ce nter (procedure) [code = 874191902] Future Scheduled 1950 Screening for malignant [facility] 00:00:00 neoplasm of colon Medical Ce nter (procedure) [code = 353153292] Future Scheduled 1950 Sigmoidoscopy [code = [facility] Sigmoidoscopy] Medical Kaye r Future Scheduled 1950 CT Colonography (combo) [facility] 00:00:00 [code = [facility] ([facility])] Future Scheduled 1950 Screening for malignant [facility] 00:00:00 neoplasm of colon Medical Ce nter (procedure) [code = 480415736] Future Scheduled 1950 Screening for malignant [facility] 00:00:00 neoplasm of colon Medical Ce nter (procedure) [code = 969608952] Future Scheduled 1950 Sigmoidoscopy [code = [facility] Sigmoidoscopy] Medical Kaye r Future Scheduled 1950 CT Colonography (combo) [facility] 00:00:00 [code = [facility] ([facility])] Future Scheduled 1950 Screening for malignant [facility] 00:00:00 neoplasm of colon Medical Ce nter (procedure) [code = 171175871] Future Scheduled 1950 Screening for malignant [facility] 00:00:00 neoplasm of colon Medical Ce nter (procedure) [code = 983858944] Future Scheduled 1950 Sigmoidoscopy [code = [facility] Sigmoidoscopy] Medical Joce r Future Scheduled 1950 CT Colonography (combo) [facility] 00:00:00 [code = CT [facility] ([facility])] Future Scheduled 1950 Screening for malignant [facility] 00:00:00 neoplasm of colon Medical Ce nter (procedure) [code = 452400986] Future Scheduled 1950 Screening for malignant [facility] 00:00:00 neoplasm of colon Medical Ce nter (procedure) [code = 980749170] Future Scheduled 1950 Sigmoidoscopy [code = [facility] Sigmoidoscopy] Medical Kaye r Future Scheduled 1950 CT Colonography (combo) [facility] 00:00:00 [code = CT [facility])] Future Scheduled 1950 Screening for malignant [facility] 00:00:00 neoplasm of colon Medical Ce nter (procedure) [code = 151491727] Future Scheduled 1950 Screening for malignant [facility] 00:00:00 neoplasm of colon Medical Ce nter (procedure) [code = 371329293] Future Scheduled 1950 Sigmoidoscopy [code = [facility] Sigmoidoscopy] Medical Cente r Future Scheduled 1950 CT Colonography (combo) [facility] 00:00:00 [code = CT Colonography [facility] (combo)] Future Scheduled 1950 Screening for malignant [facility] 00:00:00 neoplasm of colon Medical Ce nter (procedure) [code = 044303139] Future Scheduled 1950 Screening for malignant [facility] 00:00:00 neoplasm of colon Medical Ce nter (procedure) [code = 692515911] Future Scheduled 1950 Sigmoidoscopy [code = [facility] Sigmoidoscopy] Medical Cente r Encounters Start End Encounter Admission Attending Care Care Encounter Source Date/Time Date/Time Type Type Clinicians Facility Department ID 2023-05-26 2023-05-26 [facility] [id number] [facility] 00:00:00 00:00:00 2022-05-25 2022-05-25 Office Dione [facility] [id number] 09:00:00 09:30:00 Visit [facility] 2022-05-25 2022-05-25 Office Dione [facility] [id number] 09:00:00 09:30:00 Visit [facility] 2022-05-25 2022-05-25 Outpatient MEGHA HADLEY [facility] [id number] [facility] 08:53:54 08:53:54 [facility] 2022-05-18 2022-05-18 [facility], [facility] [id number] 07:37:13 23:59:00 Encounter [facility] 2022-05-18 2022-05-18 Hospital Jose, [facility] [id number] 07:37:13 23:59:00 Encounter [facility] 2022-05-18 2022-05-18 Outpatient TIM GARCIA [facility] [id number] [facility] 07:37:13 23:59:00 [facility] 2022-05-18 2022-05-18 Outpatient TIM GARCIA [facility] [id number] [facility] 00:00:00 00:00:00 [facility] 2022-04-28 2022-04-28 Orders Jose [facility] [id number] 00:00:00 00:00:00 Only [facility] 2022-04-28 2022-04-28 Orders Garcia, [facility] [id number] 00:00:00 00:00:00 Only [facility] 2021-05-19 2021-05-19 Office Chantell Estrella [facility] [id number] 09:00:00 09:30:00 Visit Jose [facility] 2021-05-19 2021-05-19 Outpatient TIM GARCIA [facility] [id number] [facility] 08:52:39 08:52:39 [facility] 2021-05-18 2021-05-18 Telephone Sharon [facility] [id number] 00:00:00 00:00:00 [facility] 2021-04-13 2021-04-13 Hospital Lux [facility] [id number] 09:43:36 23:59:[address] [facility] 2021-04-13 2021-04-13 Outpatient EL LUX [facility] [id number] [facility] 09:43:36 23:59:00 PAULY 2021-04-06 2021-04-06 Orders Lux [facility] [id number] [facility] 00:00:00 00:00:[address] [facility] 2021-04-06 2021-04-06 Orders Lux [facility] [id number] [facility] 00:00:00 00:00:[address] [facility] 2020-05-15 2020-05-15 Outpatient [facility] [id number] SLE 00:00:00 00:00:00 2020-05-01 2020-05-01 Outpatient JOSE, [facility] [id number] SLE 00:00:00 00:00:00 LINE 2020-05-01 2020-05-01 Outpatient [facility] [id number] SLE 00:00:00 00:00:00 2020-03-18 2020-03-18 Outpatient [facility] [id number] SLE 00:00:00 00:00:00 2019-05-17 2019-05-17 Outpatient [facility] [id number] SLE 00:00:00 00:00:00 [id number] 2019-04-16 2019-04-16 Outpatient [facility] [id number] SLE 00:00:00 00:00:00 [id number] Results Test Description Test Time Test Comments Results Result [facility] e Comments MR, ABDOMEN, WITH 2022-05-08 DR Gamino 1 Md: Kenny 14:00:00 ArevaloUnlisted Reason for Exam - [facility] - Click Yes and Enter MEDICAL CENTERName: Reason DEEPAK ENCARNACION Below->YesUnlisted : 1950 Reason for Sex: Exam->Liver cysts M FINAL REPORT TECHNIQUE: MRI of the abdomen WITHOUT and WITH intravenous contrast. INDICATION: Unlisted Reason for ExamLiver cysts. COMPARISON: MRI abdomen 04/13/2021. FINDINGS: LOWER THORAX: Unremarkable. LIVER: Normal size and contour. Again seen are multiple T1 dark, T2 bright nonenhancing liver cysts, the largest in the left hepatic lobe measures 3.2 cm with a thin internal nonenhancing septation (series 4 one, image 21). This measures 3.2 cm on 04/13/2021. A 1.3 cm cyst in hepatic segment six is unchanged from the prior exam (series 4 one, image 12). A 1.1 cm hemangioma versus cyst with proteinaceous component is seen in the adjacent to the segment 6 cyst. BILIARY: Gallbladder is unremarkable. No biliary ductal dilatation or filling defect.SPLEEN: No splenomegaly.PANCRE : No focal masses or ductal dilatation. ADRENALS: No adrenal nodules.KIDNEYS/URE TERS: No hydronephrosis or solid mass lesions. A 1.2 cm cyst with a thin internal nonenhancing septation in the right interpolar region (series 4 one, image 11) is unchanged from prior exam. PERITONEUM/RETROPER ITONEUM: No free fluid.LYMPH NODES: No lymphadenopathy.VES SELS: Unremarkable. GI TRACT: No distention or wall thickening. BONES AND SOFT TISSUES: Unremarkable. IMPRESSION:Multiple benign-appearing simple cysts throughout the liver unchanged from the prior exam. Liver hemangioma versus proteinaceous cyst in segment 6 of liver. Stable right renal cyst (Bosniak 2) Signed: Leila Hodges MDReport Verified Date/Time: 05/18/2022 14:00:31 Reading Location: [facility] C0[facility] Transitional Reading Room Basic Metabolic Panel 2022-05-10 21:52:00 Test Item Value Reference Range Interpretation Comme nts Glucose (test code = 80 mg/dL 65-99 Fastin g reference ) interval BUN (test code = 15 mg/dL 25 20100610) Creatinine (test code = 0.88 mg/dL 0.70-1.28 20130402) EGFR (test code = 92 See_Comment The eGFR i s based on the ) CKD-EPI 2020 eq uation. To calculate th e new eGFR from a pre vious Creatinine or C gulshan Cresult, go to [email or web address]://www.kid alok.org/p mita/kd oqi/gfr%5 Fcalculator [Au tomated message] The sy stem which generated this result transmit inna reference range : > OR = 60 mL/min/1.73m 2. The reference range was not used to interpr et this result as normal/abnormal . BUN/Creatinine Ratio NOT APPLICABLE See_Comment [Aut omated message] The (test code = ) system which generated this result tra nsmitted reference range : 6 - 22 (calc). The ref erence range was not u sed to interpret this result as normal/abnormal . Sodium (test code = 140 mmol/L 135-763 2333130) Potassium, Serum (test 4.3 mmol/L 3.5-5.3 code = 20100625) Chloride (test code = 105 mmol/L 98-322 3654039) Carbon Dioxide, Total 29 mmol/L 20-32 (test code = ) Calcium, Serum (test 9.7 mg/dL 8.6-10.3 code = 1857064) JASON (test code = JASON) FASTING:YES [id number] 21:52:00 Test Item Value Reference Range Interpretation Comments Protein, Total, 7.0 g/dL 6.1-8.1 Serum (test code = 20100614) Albumin (test code 4.5 g/dL 3.6-5.1 = ) GLOBULIN (QUEST) 2.5 See_Comment [Automated message] (test code = The system [employer] h 9344078) generated this result transmitted ref erence range: 1.9 - 3. 7 g/dL (calc). The ref erence range was not u sed to interpret this result as normal/abnor mal. Albumin Globulin 1.8 See_Comment [Automated message] Ratio (test code = The syste m which 1759-0) generated this result transmitted ref erence range: 1.0 - 2. 5 (calc). The ref erence range was not u sed to interpret this result as normal/abnor mal. Bilirubin, Total 0.8 mg/dL 0.2-1.2 (test code = 20100616) Bilirubin, Direct 0.2 mg/dL See_Comment [Automate d message] (test code = The system [employer] 20100628) generated this result transmitted ref erence range: < OR = 0 .2. The reference r jovanna was not used to interpret this result as normal/abnor mal. Bilirubin, 0.6 See_Comment [Automated mes saul] Indirect (test The system [facility] code = ) generated th is result transmitted ref erence range: 0.2 - 1. 2 mg/dL (calc). T he reference range was not used to int erpret this result as normal/abnormal . Alkaline 58 U/L 35-144 Phosphatase, S (test code = 6768-6) AST (SGOT) (test 22 U/L 10-35 code = 20100620) ALT (SGPT) (test 16 U/L 9-46 code = ) JASON (test code = FASTING:YES JASON) FASTING: YES [facility] with platelet count + automated [id number] 21:52:00 Test Item Value Reference Range Interpretation Comments WBC (test code = 5.5 See_Comment [Automated message] ) The system [employer] generated this result transmit inna reference range : 3.8 - 10.8 Thousand /uL. The reference r jovanna was not used to interpret this result as normal/abnormal . RBC (test code = 5.30 See_Comment [Automated message] 789-8) The system [employer] generated this result transmit inna reference range : 4.20 - 5.80 Million/uL. The reference range was not used to interpret this result as normal/abnormal . Hemoglobin (test 16.8 g/dL 13.2-17.1 code = ) Hematocrit (test 49.0 % 38.5-50.0 code = ) MCV (test code = 92.5 fL 80.0-100.0 ) MCH (test code = 31.7 pg 27.0-33.0 ) MCHC (test code = 34.3 g/dL 32.0-36.0 ) RDW (test code = 12.8 % 11.0-15.0 ) Platelets (test code 268 See_Comment [Autom ated message] = ) The system [employer] generated this result transmit inna reference range : 140 - 400 Thousand/ uL. The reference r jovanna was not used to interpret this result as normal/abnormal . MPV (test code = 9.7 fL 7.5-12.5 ) # Neutros (test code 2871 See_Comment [Autom ated message] = 20190902) The system [employer] generated this result transmit inna reference range : 1,500 - 7,800 cells/uL. The reference range was not used to interpret this result as normal/abnormal . # Lymphs (test code 1700 See_Comment [Automa inna message] = 731-0) The system [employer] generated this result transmit inna reference range : 850 - 3,900 cells/u L. The reference r jovanna was not used to interpret this result as normal/abnormal . # Monos (test code = 402 See_Comment [Autom ated message] ) The system [employer] generated this result transmit inna reference range : 200 - 950 cells/uL. The reference range was not used to interpret this result as normal/abnormal . # Eos (test code = 490 See_Comment [Automat ed message] 711-2) The system [employer] generated this result transmit inna reference range : 15 - 500 cells/uL. The reference range was not used to interpret this result as normal/abnormal . # Baso (test code = 39 See_Comment [Automa inna message] 704-7) The system [employer] generated this result transmit inna reference range : 0 - 200 cells/uL. T he reference range was not used to interpret this result as normal/abnormal . % Neutros (test code 52.2 % = ) % Lymphs (test code 30.9 % = 20190830) % Monos (test code = 7.3 % ) % Eos (test code = 8.9 % 20190828) % Baso (test code = 0.7 % 20190829) JASON (test code = FASTING:YES JASON) FASTING: YES [facility] Metabolic [id number] 21:52:00 Test Item Value Reference Range Interpretation Comments Glucose (test code 80 mg/dL 65-99 Fasting reference = 8068017) interval BUN (test code = 15 mg/dL 7-25 20100610) Creatinine (test 0.88 mg/dL 0.70-1.28 code = 20130402) EGFR (test code = 92 See_Comment The eGFR i s based ) on the CKD-EPI 2020 equation. To calculate the n ew eGFR from a previous Creatinine or Cystatin Cresul t, go to https://www.kid alok .org/profession als /kdoqi/gfr%5Fca lcu lator [Automate d message] The system which generated this result transmit inna reference range : > OR = 60 mL/min/1.73m2. The reference range was not used to interpret this result as normal/abnormal . BUN/Creatinine NOT APPLICABLE See_Comment [Automated Ratio (test code = message] The ) system which generated this result transmit inna reference range : 6 - 22 (calc). Th e reference range was not used to interpret this result as normal/abnormal . Sodium (test code 140 mmol/L 135-146 = 1504224) Potassium, Serum 4.3 mmol/L 3.5-5.3 (test code = 20100625) Chloride (test 105 mmol/L 98-110 code = 19000214) Carbon Dioxide, 29 mmol/L 20-32 Total (test code = ) Calcium, Serum 9.7 mg/dL 8.6-10.3 (test code = 20100607) JASON (test code = FASTING:YES JASON) [facility] [id number] 21:52:00 Test Item Value Reference Range Interpretation Comments Protein, Total, 7.0 g/dL 6.1-8.1 Serum (test code = 20100614) Albumin (test code 4.5 g/dL 3.6-5.1 = 0437013) GLOBULIN (QUEST) 2.5 See_Comment [Automated message] (test code = The system [employer] 5279672) generated this result transmitted ref erence range: 1.9 - 3. 7 g/dL (calc). The ref erence range was not u sed to interpret this result as normal/abnor mal. Albumin Globulin 1.8 See_Comment [Automated message] Ratio (test code = The syste m which 1759-0) generated this result transmitted ref erence range: 1.0 - 2. 5 (calc). The ref erence range was not u sed to interpret this result as normal/abnor mal. Bilirubin, Total 0.8 mg/dL 0.2-1.2 (test code = 2754857) Bilirubin, Direct 0.2 mg/dL See_Comment [Automate d message] (test code = The system [employer] 20100628) generated this result transmitted ref erence range: < OR = 0 .2. The reference r jovanna was not used to interpret this result as normal/abnor mal. Bilirubin, 0.6 See_Comment [Automated mes saul] Indirect (test The system [facility] code = 8371571) generated th is result transmitted ref erence range: 0.2 - 1. 2 mg/dL (calc). T he reference range was not used to int erpret this result as normal/abnormal . Alkaline 58 U/L 35-144 Phosphatase, S (test code = 6768-6) AST (SGOT) (test 22 U/L 10-35 code = 20100620) ALT (SGPT) (test 16 U/L 9-46 code = 6746184) JASON (test code = FASTING:YES JASON) FASTING: YES [facility] with platelet count + automated [id number] 21:52:00 Test Item Value Reference Range Interpretation Comments WBC (test code = 5.5 See_Comment [Automated message] ) The system [employer] generated this result transmit inna reference range : 3.8 - 10.8 Thousand /uL. The reference r jovanna was not used to interpret this result as normal/abnormal . RBC (test code = 5.30 See_Comment [Automated message] 789-8) The system [employer] generated this result transmit inna reference range : 4.20 - 5.80 Million/uL. The reference range was not used to interpret this result as normal/abnormal . Hemoglobin (test 16.8 g/dL 13.2-17.1 code = ) Hematocrit (test 49.0 % 38.5-50.0 code = ) MCV (test code = 92.5 fL 80.0-100.0 ) MCH (test code = 31.7 pg 27.0-33.0 ) MCHC (test code = 34.3 g/dL 32.0-36.0 ) RDW (test code = 12.8 % 11.0-15.0 ) Platelets (test code 268 See_Comment [Autom ated message] = ) The system [employer] generated this result transmit inna reference range : 140 - 400 Thousand/ uL. The reference r jovanna was not used to interpret this result as normal/abnormal . MPV (test code = 9.7 fL 7.5-12.5 ) # Neutros (test code 2871 See_Comment [Autom ated message] = 20190902) The system [employer] generated this result transmit inna reference range : 1,500 - 7,800 cells/uL. The reference range was not used to interpret this result as normal/abnormal . # Lymphs (test code 1700 See_Comment [Automa inna message] = 731-0) The system [employer] generated this result transmit inna reference range : 850 - 3,900 cells/u L. The reference r jovanna was not used to interpret this result as normal/abnormal . # Monos (test code = 402 See_Comment [Autom ated message] ) The system [employer] generated this result transmit inna reference range : 200 - 950 cells/uL. The reference range was not used to interpret this result as normal/abnormal . # Eos (test code = 490 See_Comment [Automat ed message] 711-2) The system [employer] generated this result transmit inna reference range : 15 - 500 cells/uL. The reference range was not used to interpret this result as normal/abnormal . # Baso (test code = 39 See_Comment [Automa inna message] 704-7) The system [employer] generated this result transmit inna reference range : 0 - 200 cells/uL. T he reference range was not used to interpret this result as normal/abnormal . % Neutros (test code 52.2 % = ) % Lymphs (test code 30.9 % = 20190830) % Monos (test code = 7.3 % ) % Eos (test code = 8.9 % 20190828) % Baso (test code = 0.7 % 20190829) JASON (test code = FASTING:YES JASON) [id number]:52:00 Test Item Value Reference Range Interpretation Comments Glucose (test code 80 mg/dL 65-99 Fasting reference = 6158170) interval BUN (test code = 15 mg/dL 7-25 20100610) Creatinine (test 0.88 mg/dL 0.70-1.28 code = 20130402) EGFR (test code = 92 See_Comment The eGFR i s based ) on the CKD-EPI 2020 equation. To calculate the n ew eGFR from a previous Creatinine or Cystatin Cresul t, go to [email or web address]://[email or web address] alok .org/profession als /kdoqi/gfr%5Fca lcu lator [Automate d message] The system which generated this result transmit inna reference range : > OR = 60 mL/min/1.73m2. The reference range was not used to interpret this result as normal/abnormal . BUN/Creatinine NOT APPLICABLE See_Comment [Automated Ratio (test code = message] The ) system which generated this result transmit inna reference range : 6 - 22 (calc). Th e reference range was not used to interpret this result as normal/abnormal . Sodium (test code 140 mmol/L 135-146 = 6680102) Potassium, Serum 4.3 mmol/L 3.5-5.3 (test code = 7484526) Chloride (test 105 mmol/L 98-110 code = 19000214) Carbon Dioxide, 29 mmol/L 20-32 Total (test code = ) Calcium, Serum 9.7 mg/dL 8.6-10.3 (test code = 20100607) JASON (test code = FASTING:YES JASON) [facility] [id number] 21:52:00 Test Item Value Reference Range Interpretation Comments Protein, Total, 7.0 g/dL 6.1-8.1 Serum (test code = 20100614) Albumin (test code 4.5 g/dL 3.6-5.1 = ) GLOBULIN (QUEST) 2.5 See_Comment [Automated message] (test code = The system [employer] ) generated this result transmitted ref erence range: 1.9 - 3. 7 g/dL (calc). The ref erence range was not u sed to interpret this result as normal/abnor mal. Albumin Globulin 1.8 See_Comment [Automated message] Ratio (test code = The syste m which 9-0) generated this result transmitted ref erence range: 1.0 - 2. 5 (calc). The ref erence range was not u sed to interpret this result as normal/abnor mal. Bilirubin, Total 0.8 mg/dL 0.2-1.2 (test code = 0422472) Bilirubin, Direct 0.2 mg/dL See_Comment [Automate d message] (test code = The system [employer] 20100628) generated this result transmitted ref erence range: < OR = 0 .2. The reference r jovanna was not used to interpret this result as normal/abnor mal. Bilirubin, 0.6 See_Comment [Automated mes saul] Indirect (test The system [facility] code = 8184834) generated th is result transmitted ref erence range: 0.2 - 1. 2 mg/dL (calc). T he reference range was not used to int erpret this result as normal/abnormal . Alkaline 58 U/L 35-144 Phosphatase, S (test code = 6768-6) AST (SGOT) (test 22 U/L 10-35 code = 20100620) ALT (SGPT) (test 16 U/L 9-46 code = 1478787) JASON (test code = FASTING:YES JASON) FASTING: YES [facility] with platelet count + automated [id number] 21:52:00 Test Item Value Reference Range Interpretation Comments WBC (test code = 5.5 See_Comment [Automated message] ) The system [employer] generated this result transmit inna reference range : 3.8 - 10.8 Thousand /uL. The reference r jovanna was not used to interpret this result as normal/abnormal . RBC (test code = 5.30 See_Comment [Automated message] 789-8) The system [employer] generated this result transmit inna reference range : 4.20 - 5.80 Million/uL. The reference range was not used to interpret this result as normal/abnormal . Hemoglobin (test 16.8 g/dL 13.2-17.1 code = ) Hematocrit (test 49.0 % 38.5-50.0 code = ) MCV (test code = 92.5 fL 80.0-100.0 ) MCH (test code = 31.7 pg 27.0-33.0 ) MCHC (test code = 34.3 g/dL 32.0-36.0 ) RDW (test code = 12.8 % 11.0-15.0 ) Platelets (test code 268 See_Comment [Autom ated message] = ) The system [employer] generated this result transmit inna reference range : 140 - 400 Thousand/ uL. The reference r jovanna was not used to interpret this result as normal/abnormal . MPV (test code = 9.7 fL 7.5-12.5 ) # Neutros (test code 2871 See_Comment [Autom ated message] = 20190902) The system [employer] generated this result transmit inna reference range : 1,500 - 7,800 cells/uL. The reference range was not used to interpret this result as normal/abnormal . # Lymphs (test code 1700 See_Comment [Automa inna message] = 731-0) The system [employer] generated this result transmit inna reference range : 850 - 3,900 cells/u L. The reference r jovanna was not used to interpret this result as normal/abnormal . # Monos (test code = 402 See_Comment [Autom ated message] ) The system [employer] generated this result transmit inna reference range : 200 - 950 cells/uL. The reference range was not used to interpret this result as normal/abnormal . # Eos (test code = 490 See_Comment [Automat ed message] 711-2) The system [employer] generated this result transmit inna reference range : 15 - 500 cells/uL. The reference range was not used to interpret this result as normal/abnormal . # Baso (test code = 39 See_Comment [Automa inna message] 484-7) The system [employer] generated this result transmit inna reference range : 0 - 200 cells/uL. T he reference range was not used to interpret this result as normal/abnormal . % Neutros (test code 52.2 % = ) % Lymphs (test code 30.9 % = 20190830) % Monos (test code = 7.3 % ) % Eos (test code = 8.9 % 20190828) % Baso (test code = 0.7 % 20190829) JASON (test code = FASTING:YES JASON) [facility] [id number] 21:52:00 Test Item Value Reference Range Interpretation Comments Glucose (test code 80 mg/dL 65-99 Fasting reference = ) interval BUN (test code = 15 mg/dL 7-20100610) Creatinine (test 0.88 mg/dL 0.70-1.28 code = 20130402) EGFR (test code = 92 See_Comment The eGFR i s based ) on the CKD-EPI 2020 equation. To calculate the n ew eGFR from a previous Creatinine or Cystatin Cresul t, go to [email or web address].kid alok .org/profession als /kdoqi/gfr%5Fca lcu lator [Automate d message] The system which generated this result transmit inna reference range : > OR = 60 mL/min/1.73m2. The reference range was not used to interpret this result as normal/abnormal . BUN/Creatinine NOT APPLICABLE See_Comment [Automated Ratio (test code = message] The ) system which generated this result transmit inna reference range : 6 - 22 (calc). Th e reference range was not used to interpret this result as normal/abnormal . Sodium (test code 140 mmol/L 135-146 = 7873113) Potassium, Serum 4.3 mmol/L 3.5-5.3 (test code = 5389182) Chloride (test 105 mmol/L 98-110 code = 3678930) Carbon Dioxide, 29 mmol/L 20-32 Total (test code = 3302079) Calcium, Serum 9.7 mg/dL 8.6-10.3 (test code = 3870898) JASON (test code = FASTING:YES JASON) [facility]: [facility] [id number] 21:52:00 Test Item Value Reference Range Interpretation Comments Protein, Total, 7.0 g/dL 6.1-8.1 Serum (test code = 20100614) Albumin (test code 4.5 g/dL 3.6-5.1 = ) GLOBULIN (QUEST) 2.5 See_Comment [Automated message] (test code = The system [facility] ) generated this result transmitted ref erence range: 1.9 - 3. 7 g/dL (calc). The ref erence range was not u sed to interpret this result as normal/abnor mal. Albumin Globulin 1.8 See_Comment [Automated message] Ratio (test code = The syste which 1759-0) generated this result transmitted ref erence range: 1.0 - 2. 5 (calc). The ref erence range was not u sed to interpret this result as normal/abnor mal. Bilirubin, Total 0.8 mg/dL 0.2-1.2 (test code = 20100616) Bilirubin, Direct 0.2 mg/dL See_Comment [Automate d message] (test code = The system [facility] [employer] 20100628) generated this result transmitted ref erence range: < OR = 0 .2. The reference r jovanna was not used to interpret this result as normal/abnor mal. Bilirubin, 0.6 See_Comment [Automated mes saul] Indirect (test The system [facility] code = 8369716) generated th is result transmitted ref erence range: 0.2 - 1. 2 mg/dL (calc). T he reference range was not used to int erpret this result as normal/abnormal . Alkaline 58 U/L 35-144 Phosphatase, S (test code = 6768-6) AST (SGOT) (test 22 U/L 10-35 code = 20100620) ALT (SGPT) (test 16 U/L 9-46 code = 9478623) JASON (test code = FASTING:YES JASON) FASTING: YES [facility] with platelet count + automated [id number] 21:52:00 Test Item Value Reference Range Interpretation Comments WBC (test code = 5.5 See_Comment [Automated message] ) The system [facility] [employer] generated this result transmit inna reference range : 3.8 - 10.8 Thousand /uL. The reference r jovanna was not used to interpret this result as normal/abnormal . RBC (test code = 5.30 See_Comment [Automated message] 789-8) The system [facility] [employer] generated this result transmit inna reference range : 4.20 - 5.80 Million/uL. The reference range was not used to interpret this result as normal/abnormal . Hemoglobin (test 16.8 g/dL 13.2-17.1 code = ) Hematocrit (test 49.0 % 38.5-50.0 code = ) MCV (test code = 92.5 fL 80.0-100.0 ) MCH (test code = 31.7 pg 27.0-33.0 ) MCHC (test code = 34.3 g/dL 32.0-36.0 ) RDW (test code = 12.8 % 11.0-15.0 ) Platelets (test code 268 See_Comment [Autom ated message] = ) The system [employer] generated this result transmit inna reference range : 140 - 400 Thousand/ uL. The reference r jovanna was not used to interpret this result as normal/abnormal . MPV (test code = 9.7 fL 7.5-12.5 ) # Neutros (test code 2871 See_Comment [Autom ated message] = 20190902) The system [employer] generated this result transmit inna reference range : 1,500 - 7,800 cells/uL. The reference range was not used to interpret this result as normal/abnormal . # Lymphs (test code 1700 See_Comment [Automa inna message] = 731-0) The system [employer] generated this result transmit inna reference range : 850 - 3,900 cells/u L. The reference r jovanna was not used to interpret this result as normal/abnormal . # Monos (test code = 402 See_Comment [Autom ated message] ) The system [employer] generated this result transmit inna reference range : 200 - 950 cells/uL. The reference range was not used to interpret this result as normal/abnormal . # Eos (test code = 490 See_Comment [Automat ed message] 1-2) The system [employer] generated this result transmit inna reference range : 15 - 500 cells/uL. The reference range was not used to interpret this result as normal/abnormal . # Baso (test code = 39 See_Comment [Automa inna message] 496-7) The system [employer] generated this result transmit inna reference range : 0 - 200 cells/uL. T he reference range was not used to interpret this result as normal/abnormal . % Neutros (test code 52.2 % = ) % Lymphs (test code 30.9 % = 20190830) % Monos (test code = 7.3 % ) % Eos (test code = 8.9 % 20190828) % Baso (test code = 0.7 % 20190829) JASON (test code = FASTING:YES JASON) [facility]: [facility] [id number] 21:52:00 Test Item Value Reference Range Interpretation Comments Glucose (test code 80 mg/dL 65-99 Fasting reference = 7006904) interval BUN (test code = 15 mg/dL 7-25 20100610) Creatinine (test 0.88 mg/dL 0.70-1.28 code = 20130402) EGFR (test code = 92 See_Comment The eGFR i s based ) on the CKD-EPI 2020 equation. To calculate the n ew eGFR from a previous Creatinine or Cystatin Cresul t, go to [email or web address].kid alok .org/profession als /kdoqi/gfr%5Fca lcu lator [Automate d message] The system which generated this result transmit inna reference range : > OR = 60 mL/min/1.73m2. The reference range was not used to interpret this result as normal/abnormal . BUN/Creatinine NOT APPLICABLE See_Comment [Automated Ratio (test code = message] The ) system which generated this result transmit inna reference range : 6 - 22 (calc). Th e reference range was not used to interpret this result as normal/abnormal . Sodium (test code 140 mmol/L 135-146 = 3274604) Potassium, Serum 4.3 mmol/L 3.5-5.3 (test code = 3444567) Chloride (test 105 mmol/L 98-110 code = 19000214) Carbon Dioxide, 29 mmol/L 20-32 Total (test code = 1506046) Calcium, Serum 9.7 mg/dL 8.6-10.3 (test code = 4417551) JASON (test code = FASTING:YES JASON) [facility]STING: YES [facility] [id number] 21:52:00 Test Item Value Reference Range Interpretation Comments Protein, Total, 7.0 g/dL 6.1-8.1 Serum (test code = 20100614) Albumin (test code 4.5 g/dL 3.6-5.1 = ) GLOBULIN (QUEST) 2.5 See_Comment [Automated message] (test code = The system [facility] 5674971) generated this result transmitted ref erence range: 1.9 - 3. 7 g/dL (calc). The ref erence range was not u sed to interpret this result as normal/abnor mal. Albumin Globulin 1.8 See_Comment [Automated message] Ratio (test code = The syste which 9-0) generated this result transmitted ref erence range: 1.0 - 2. 5 (calc). The ref erence range was not u sed to interpret this result as normal/abnor mal. Bilirubin, Total 0.8 mg/dL 0.2-1.2 (test code = 20100616) Bilirubin, Direct 0.2 mg/dL See_Comment [Automate d message] (test code = The system [facility] 20100628) generated this result transmitted ref erence range: < OR = 0 .2. The reference r jovanna was not used to interpret this result as normal/abnor mal. Bilirubin, 0.6 See_Comment [Automated mes saul] Indirect (test The system [facility] code = 3992876) generated th is result transmitted ref erence range: 0.2 - 1. 2 mg/dL (calc). T he reference range was not used to int erpret this result as normal/abnormal . Alkaline 58 U/L 35-144 Phosphatase, S (test code = 6768-6) AST (SGOT) (test 22 U/L 10-35 code = 3251487) ALT (SGPT) (test 16 U/L 9-46 code = 4109600) JASON (test code = FASTING:YES JASON) FASTING: YES [facility] with platelet count + automated [id number] 21:52:00 Test Item Value Reference Range Interpretation Comments WBC (test code = 5.5 See_Comment [Automated message] ) The system [facility] generated this result transmit inna reference range : 3.8 - 10.8 Thousand /uL. The reference r jovanna was not used to interpret this result as normal/abnormal . RBC (test code = 5.30 See_Comment [Automated message] 789-8) The system [employer] generated this result transmit inna reference range : 4.20 - 5.80 Million/uL. The reference range was not used to interpret this result as normal/abnormal . Hemoglobin (test 16.8 g/dL 13.2-17.1 code = ) Hematocrit (test 49.0 % 38.5-50.0 code = ) MCV (test code = 92.5 fL 80.0-100.0 ) MCH (test code = 31.7 pg 27.0-33.0 ) MCHC (test code = 34.3 g/dL 32.0-36.0 ) RDW (test code = 12.8 % 11.0-15.0 ) Platelets (test code 268 See_Comment [Autom ated message] = ) The system [employer] generated this result transmit inna reference range : 140 - 400 Thousand/ uL. The reference r jovanna was not used to interpret this result as normal/abnormal . MPV (test code = 9.7 fL 7.5-12.5 ) # Neutros (test code 2871 See_Comment [Autom ated message] = 20190902) The system [employer] generated this result transmit inna reference range : 1,500 - 7,800 cells/uL. The reference range was not used to interpret this result as normal/abnormal . # Lymphs (test code 1700 See_Comment [Automa inna message] = 731-0) The system [employer] generated this result transmit inna reference range : 850 - 3,900 cells/u L. The reference r jovanna was not used to interpret this result as normal/abnormal . # Monos (test code = 402 See_Comment [Autom ated message] ) The system [employer] generated this result transmit inna reference range : 200 - 950 cells/uL. The reference range was not used to interpret this result as normal/abnormal . # Eos (test code = 490 See_Comment [Automat ed message] 711-2) The system [employer] generated this result transmit inna reference range : 15 - 500 cells/uL. The reference range was not used to interpret this result as normal/abnormal . # Baso (test code = 39 See_Comment [Automa inna message] 704-7) The system [employer] generated this result transmit inna reference range : 0 - 200 cells/uL. T he reference range was not used to interpret this result as normal/abnormal . % Neutros (test code 52.2 % = ) % Lymphs (test code 30.9 % = 20190830) % Monos (test code = 7.3 % ) % Eos (test code = 8.9 % 20190828) % Baso (test code = 0.7 % 20190829) JASON (test code = FASTING:YES JASON) FASTING: YES [facility] Metabolic [id number] 21:52:00 Test Item Value Reference Range Interpretation Comments Glucose (test code 80 mg/dL 65-99 Fasting reference = 1996266) interval BUN (test code = 15 mg/dL 20100610) Creatinine (test 0.88 mg/dL 0.70-1.28 code = 20130402) EGFR (test code = 92 See_Comment The eGFR i s based ) on the CKD-EPI 2020 equation. To calculate the n ew eGFR from a previous Creatinine or Cystatin Cresul t, go to [email or web address].kid alok .org/profession als /kdoqi/gfr%5Fca lcu lator [Automate d message] The system which generated this result transmit inna reference range : > OR = 60 mL/min/1.73m2. The reference range was not used to interpret this result as normal/abnormal . BUN/Creatinine NOT APPLICABLE See_Comment [Automated Ratio (test code = message] The ) system which generated this result transmit inna reference range : 6 - 22 (calc). Th e reference range was not used to interpret this result as normal/abnormal . Sodium (test code 140 mmol/L 135-146 = 7655358) Potassium, Serum 4.3 mmol/L 3.5-5.3 (test code = 7433793) Chloride (test 105 mmol/L 98-110 code = 4531265) Carbon Dioxide, 29 mmol/L 20-32 Total (test code = 5418638) Calcium, Serum 9.7 mg/dL 8.6-10.3 (test code = 4975905) JASON (test code = FASTING:YES JASON) [facility] [id number] 21:52:00 Test Item Value Reference Range Interpretation Comments Protein, Total, 7.0 g/dL 6.1-8.1 Serum (test code = 20100614) Albumin (test code 4.5 g/dL 3.6-5.1 = ) GLOBULIN (QUEST) 2.5 See_Comment [Automated message] (test code = The system [facility] 1090499) generated this result transmitted ref erence range: 1.9 - 3. 7 g/dL (calc). The ref erence range was not u sed to interpret this result as normal/abnor mal. Albumin Globulin 1.8 See_Comment [Automated message] Ratio (test code = The syste which 1759-0) generated this result transmitted ref erence range: 1.0 - 2. 5 (calc). The ref erence range was not u sed to interpret this result as normal/abnor mal. Bilirubin, Total 0.8 mg/dL 0.2-1.2 (test code = 1969904) Bilirubin, Direct 0.2 mg/dL See_Comment [Automate d message] (test code = The system [facility] 3720055) generated this result transmitted ref erence range: < OR = 0 .2. The reference r jovanna was not used to interpret this result as normal/abnor mal. Bilirubin, 0.6 See_Comment [Automated mes saul] Indirect (test The system [facility] code = 5421831) generated th is result transmitted ref erence range: 0.2 - 1. 2 mg/dL (calc). T he reference range was not used to int erpret this result as normal/abnormal . Alkaline 58 U/L 35-144 Phosphatase, S (test code = 6768-6) AST (SGOT) (test 22 U/L 10-35 code = 6949727) ALT (SGPT) (test 16 U/L 9-46 code = 7777044) JASON (test code = FASTING:YES JASON) [facility] [id number] 21:52:00 Test Item Value Reference Range Interpretation Comments WBC (test code = 5.5 See_Comment [Automated message] ) The system [employer] generated this result transmit inna reference range : 3.8 - 10.8 Thousand /uL. The reference r jovanna was not used to interpret this result as normal/abnormal . RBC (test code = 5.30 See_Comment [Automated message] 789-8) The system [employer] generated this result transmit inna reference range : 4.20 - 5.80 Million/uL. The reference range was not used to interpret this result as normal/abnormal . Hemoglobin (test 16.8 g/dL 13.2-17.1 code = ) Hematocrit (test 49.0 % 38.5-50.0 code = ) MCV (test code = 92.5 fL 80.0-100.0 ) MCH (test code = 31.7 pg 27.0-33.0 ) MCHC (test code = 34.3 g/dL 32.0-36.0 ) RDW (test code = 12.8 % 11.0-15.0 ) Platelets (test code 268 See_Comment [Autom ated message] = ) The system [employer] generated this result transmit inna reference range : 140 - 400 Thousand/ uL. The reference r jovanna was not used to interpret this result as normal/abnormal . MPV (test code = 9.7 fL 7.5-12.5 9116754) # Neutros (test code 2871 See_Comment [Autom ated message] = 8109233) The system [employer] generated this result transmit inna reference range : 1,500 - 7,800 cells/uL. The reference range was not used to interpret this result as normal/abnormal . # Lymphs (test code 1700 See_Comment [Automa inna message] = 731-0) The system [employer] generated this result transmit inna reference range : 850 - 3,900 cells/u L. The reference r jovanna was not used to interpret this result as normal/abnormal . # Monos (test code = 402 See_Comment [Autom ated message] ) The system [employer] generated this result transmit inna reference range : 200 - 950 cells/uL. The reference range was not used to interpret this result as normal/abnormal . # Eos (test code = 490 See_Comment [Automat ed message] 711-2) The system [employer] generated this result transmit inna reference range : 15 - 500 cells/uL. The reference range was not used to interpret this result as normal/abnormal . # Baso (test code = 39 See_Comment [Automa inna message] 944-7) The system [employer] generated this result transmit inna reference range : 0 - 200 cells/uL. T he reference range was not used to interpret this result as normal/abnormal . % Neutros (test code 52.2 % = ) % Lymphs (test code 30.9 % = 20190830) % Monos (test code = 7.3 % ) % Eos (test code = 8.9 % 20190828) % Baso (test code = 0.7 % 20190829) JASON (test code = FASTING:YES JASON) FASTING: YES [facility] [id number] 14:15:00DR CHU Cabral Md: Kenny Abrams Unlisted Reason for Exam - Click Yes and Enter Reason Below->Yes Unlisted Reason for Exam->complex liver cysts [facility]COIN : 1950 Sex: MFINAL REPORT TECHNIQUE: MRI of the abdomen WITHOUT and WITH intravenous contrast. INDICATION: 70-year-old man with complex liver cysts. COMPARISON: Abdomen MRI 05/01/2020. FINDINGS: LOWER THORAX: Unremarkable. LIVER: No cirrhosis or hepatic steatosis. No significant change in the multiple cysts scattered in both lobes of the liver which measure up to 3.5 x 2.3 cm, many of the larger cysts contain nonenhancing thin septations. BILIARY: Gallbladder is unremarkable. No biliary ductal dilatation or filling defect.SPLEEN: No splenomegaly.PANCREAS: No focal mass or ductal dilatation. ADRENALS:No adrenal nodule.KIDNEYS/URETERS: No hydronephrosis or mass. No significant change in the 1.6 x 1.1cm right renal cyst with nonenhancing thin internal septations. PERITONEUM/RETROPERITONEUM: No free fluid.LYMPH NODES: No lymphadenopathy.VESSELS: Unremarkable. GI TRACT: No distention or wall thickenin g. BONES AND SOFT TISSUES: Persistent rightward convex curvature of the thoracolumbar spine with degenerative endplate changes in the lumbar spine. Soft tissues are unremarkable. IMPRESSION:No significant change in the multiple hepatic cysts and right renal cyst without suspicious features. Signed: Chary Zhao MDReport Verified Date/Time: 04/17/2021 14:15:17 Reading Location: [facility] Diagnostic Imaging Reading Room - [place] [address] [facility] Metabolic [id number] 02:59:00 Test Item Value Reference Range Interpretation Comments Glucose (test 87 mg/dL 65-139 Non-fasting r eference code = 2779023) interval BUN (test code = 15 mg/dL 7-25 20100610) Creatinine (test 0.95 mg/dL 0.70-1.18 For patient s >49 years code = 9998569) of age, the reference limitfor Creati nine is approximately 1 3% higher for peopleidentifie d as -Poornima n. eGFR If NonAfricn 81 See_Comment [Automate d message] Am (test code = The system [facility] 9354240) generated this result transmitted ref erence range: > OR = 6 0 mL/min/1.73m2. The reference range was not used to int erpret this result as normal/abnormal . eGFR If Africn Am 94 See_Comment [Automate d message] (test code = The system [facility] 9018244) generated this result transmitted ref erence range: > OR = 6 0 mL/min/1.73m2. The reference range was not used to int erpret this result as normal/abnormal . BUN/Creatinine NOT APPLICABLE See_Comment [Automated message] Ratio (test code The system which = ) generated this result transmitted ref erence range: 6 - 22 ( calc). The reference r jovanna was not used to interpret this result as normal/abnor mal. Sodium (test code 141 mmol/L 135-146 = 6153426) Potassium, Serum 4.7 mmol/L 3.5-5.3 (test code = 20100625) Chloride (test 104 mmol/L 98-110 code = 7844965) Carbon Dioxide, 31 mmol/L 20-32 Total (test code = ) Calcium, Serum 9.8 mg/dL 8.6-10.3 (test code = 2830578) JASON (test code = FASTING:NO JASON) FASTING: NO [facility] CenterHepatic function [id number] 02:59:00 Test Item Value Reference Range Interpretation Comments Protein, Total, 7.1 g/dL 6.1-8.1 Serum (test code = 20100614) Albumin (test code 4.7 g/dL 3.6-5.1 = ) GLOBULIN (QUEST) 2.4 See_Comment [Automated message] (test code = The system [facility] ) generated this result transmitted ref erence range: 1.9 - 3. 7 g/dL (calc). The ref erence range was not u sed to interpret this result as normal/abnor mal. Albumin Globulin 2.0 See_Comment [Automated message] Ratio (test code = The [facility] which 9-0) generated this result transmitted ref erence range: 1.0 - 2. 5 (calc). The ref erence range was not u sed to interpret this result as normal/abnor mal. Bilirubin, Total 0.8 mg/dL 0.2-1.2 (test code = 20100616) Bilirubin, Direct 0.1 mg/dL See_Comment [Automate d message] (test code = The system [facility] 20100628) generated this result transmitted ref erence range: < OR = 0 .2. The reference r jovanna was not used to interpret this result as normal/abnor mal. Bilirubin, 0.7 See_Comment [Automated mes saul] Indirect (test The system ich code = 7310368) generated th is result transmitted ref erence range: 0.2 - 1. 2 mg/dL (calc). T he reference range was not used to int erpret this result as normal/abnormal . Alkaline 53 U/L 35-144 Phosphatase, S (test code = 6768-6) AST (SGOT) (test 24 U/L 10-35 code = 2600381) ALT (SGPT) (test 21 U/L 9-46 code = 3973561) JASON (test code = FASTING:NO JASON) FASTING: NO [facility] CenterCBC with platelet count + automated [id number] 02:59:00 Test Item Value Reference Range Interpretation Comments WBC (test code = 5.2 See_Comment [Automated message] ) The system [employer] generated this result transmit inna reference range : 3.8 - 10.8 Thousand /uL. The reference r jovanna was not used to interpret this result as normal/abnormal . RBC (test code = 5.11 See_Comment [Automated message] 789-8) The system [employer] generated this result transmit inna reference range : 4.20 - 5.80 Million/uL. The reference range was not used to interpret this result as normal/abnormal . Hemoglobin (test 15.6 g/dL 13.2-17.1 code = ) Hematocrit (test 46.6 % 38.5-50.0 code = ) MCV (test code = 91.2 fL 80.0-100.0 ) MCH (test code = 30.5 pg 27.0-33.0 ) MCHC (test code = 33.5 g/dL 32.0-36.0 ) RDW (test code = 12.7 % 11.0-15.0 ) Platelets (test code 295 See_Comment [Autom ated message] = ) The system [employer] generated this result transmit inna reference range : 140 - 400 Thousand/ uL. The reference r jovanna was not used to interpret this result as normal/abnormal . MPV (test code = 9.4 fL 7.5-12.5 3199735) # Neutros (test code 2808 See_Comment [Autom ated message] = 20190902) The system [employer] generated this result transmit inna reference range : 1,500 - 7,800 cells/uL. The reference range was not used to interpret this result as normal/abnormal . # Lymphs (test code 1825 See_Comment [Automa inna message] = 731-0) The system [employer] generated this result transmit inna reference range : 850 - 3,900 cells/u L. The reference r jovanna was not used to interpret this result as normal/abnormal . # Monos (test code = 317 See_Comment [Autom ated message] ) The system [employer] generated this result transmit inna reference range : 200 - 950 cells/uL. The reference range was not used to interpret this result as normal/abnormal . # Eos (test code = 198 See_Comment [Automat ed message] 711-2) The system [employer] generated this result transmit inna reference range : 15 - 500 cells/uL. The reference range was not used to interpret this result as normal/abnormal . # Baso (test code = 52 See_Comment [Automa inna message] 704-7) The system [employer] generated this result transmit inna reference range : 0 - 200 cells/uL. T he reference range was not used to interpret this result as normal/abnormal . % Neutros (test code 54 % = ) % Lymphs (test code 35.1 % = 20190830) % Monos (test code = 6.1 % ) % Eos (test code = 3.8 % 20190828) % Baso (test code = 1.0 % 20190829) JASON (test code = FASTING:NO JASON) FASTING: NO [facility], [id number] 14:36:00DR Stevenson Carmona: Kenny ArevaloUnlisted Reason for Exam - Click Yes and Enter Reason Below->YesUnlisted Reason for Exam->complex liver cysts [facility]CION : 1950 Sex: MFINAL REPORT TECHNIQUE: MRI of the abdomen WITHOUT and WITH intravenous contrast. INDICATION: Unlisted Reason for Examcomplex liver cysts COMPARISON: Abdomen MRI on 05/04/2018. FINDINGS: LOWER THORAX: Unremarkable LIVER: No hepatic signal abnormality. No focal suspicious hepatic lesions. There are several peripheral, wedge-shaped regions of arterial phase hyperenhancement without correlateon subsequent phases which likely represent transient hepatic perfusion differences. The numerous T1hypo-/T2 hyperintense nonenhancing cysts scattered throughout both lobes of the liver are unchanged.Trouble Shooter lesions as follows:*3.4 cm cystic lesion in segment II with thin internal septations.*2.2 cm cystic lesion in segment IV with thin internal septations.*2.3 cm cystic lesion in segment . BILIARY: Gallbladder is unremarkable. No biliary ductal dilatation or filling defect.SPLEEN: No splenomegaly.PANCREAS: No focal masses or ductal dilatation. ADRENALS: No adrenal nodules.KIDNEYS/URETERS: No hydronephrosis or solid mass lesions. Right renal cyst. PERITONEUM/RETROPERITONEUM: No free fluid.LYMPH NODES: No enlarged abdominal lymph nodes.VESSELS: Unremarkable. GI TRACT: No distention or wall thickening. BONES AND SOFT TISSUES: Gynecomastia. Unchanged right convex curvature of the lumbar spine. No focal suspicious osseous lesions. IMPRESSION:Stable hepatic cysts. No focal suspicious hepatic lesion. Signed: Leila Hodges MDReport Verified Date/Time: 05/01/2020 14:36:29 Reading Location: [address] Transitional Reading Room C METABOLIC [id number] 11:11:00 Test Item Value Reference Range Interpretation Comments SODIUM (BEAKER) 143 meq/L 136-145 (test code = 381) POTASSIUM (BEAKER) 4.5 meq/L 3.5-5.1 (test code = 379) CHLORIDE (BEAKER) 105 meq/L 98-107 (test code = 382) CO2 (BEAKER) (test 31 meq/L 22-29 H code = 355) BLOOD UREA NITROGEN 17 mg/dL 7-21 (BEAKER) (test code = 354) CREATININE (BEAKER) 0.99 mg/dL 0.57-1.25 (test code = 358) GLUCOSE RANDOM 74 mg/dL 70-105 (BEAKER) (test code = 652) CALCIUM (BEAKER) 9.4 mg/dL 8.4-10.2 (test code = 697) EGFR (BEAKER) (test 75 mL/min/1.73 ESTIMA INNA GFR IS code = 1092) sq m NOT ACCURATE CREATININE CLEARANCE IN PREDICTING GLOMERULAR FILTRATION RATE . ESTIMATED GFR I S NOT APPLICABLE FOR DIALYSIS PATIEN TS. Grooving Lathe Tender ID - EMILE EPATIC FUNCTION [id number] 11:11:00 Test Item Value Reference Range Interpretation Comments TOTAL PROTEIN (BEAKER) (test code = 7.1 gm/dL 6.0-8.3 770) ALBUMIN (BEAKER) (test code = 1145) 4.5 g/dL 3.5-5.0 BILIRUBIN TOTAL (BEAKER) (test code 0.5 mg/dL 0.2-1.2 = 377) BILIRUBIN DIRECT (BEAKER) (test 0.2 mg/dL 0.1-0.5 code = 706) ALKALINE PHOSPHATASE (BEAKER) (test 68 U/L 40-150 code = 346) AST (SGOT) (BEAKER) (test code = 21 U/L 5-34 353) ALT (SGPT) (BEAKER) (test code = 21 U/L 6-55 347) Grooving Lathe Tender ID - EMILE MCBC W/PLT COUNT & AUTO [id number] 10:54:00 Test Item Value Reference Range Interpretation Comments WHITE BLOOD CELL COUNT (BEAKER) 7.4 K/ L 3.5-10.5 (test code = 775) RED BLOOD CELL COUNT (BEAKER) 5.12 M/ L 4.63-6.08 (test code = 761) HEMOGLOBIN (BEAKER) (test code = 15.9 GM/DL 13.7-17.5 410) HEMATOCRIT (BEAKER) (test code = 48.0 % 40.1-51.0 411) MEAN CORPUSCULAR VOLUME (BEAKER) 93.8 fL 79.0-92.2 H (test code = 753) MEAN CORPUSCULAR HEMOGLOBIN 31.1 pg 25.7-32.2 (BEAKER) (test code = 751) MEAN CORPUSCULAR HEMOGLOBIN CONC 33.1 GM/DL 32.3-36.5 (BEAKER) (test code = 752) RED CELL DISTRIBUTION WIDTH 13.3 % 11.6-14.4 (BEAKER) (test code = 412) PLATELET COUNT (BEAKER) (test 297 K/CU MM 150-450 code = 756) MEAN PLATELET VOLUME (BEAKER) 9.3 fL 9.4-12.4 L (test code = 754) NUCLEATED RED BLOOD CELLS 0 /100 WBC 0-0 (BEAKER) (test code = 413) NEUTROPHILS RELATIVE PERCENT 72 % (BEAKER) (test code = 429) LYMPHOCYTES RELATIVE PERCENT 21 % (BEAKER) (test code = 430) MONOCYTES RELATIVE PERCENT 5 % (BEAKER) (test code = 431) EOSINOPHILS RELATIVE PERCENT 2 % (BEAKER) (test code = 432) BASOPHILS RELATIVE PERCENT 1 % (BEAKER) (test code = 437) NEUTROPHILS ABSOLUTE COUNT 5.28 K/ L 1.78-5.38 (BEAKER) (test code = 670) LYMPHOCYTES ABSOLUTE COUNT 1.51 K/ L 1.32-3.57 (BEAKER) (test code = 414) MONOCYTES ABSOLUTE COUNT (BEAKER) 0.34 K/ L 0.30-0.82 (test code = 415) EOSINOPHILS ABSOLUTE COUNT 0.17 K/ L 0.04-0.54 (BEAKER) (test code = 416) BASOPHILS ABSOLUTE COUNT (BEAKER) 0.05 K/ L 0.01-0.08 (test code = 417) IMMATURE GRANULOCYTES-RELATIVE 0 % 0-1 PERCENT (BEAKER) (test code = 2801) MR, ABDOMEN, WITHOUT / WITH IV [id number] 15:30:00Referring : Kenny Tobias REPORT TECHNIQUE: MRI of the abdomen WITHOUT and WITH intravenous contrast. INDICATION: liver masses, screen for cancer. COMPARISON: MRI abdomen 05/04/2018. FINDINGS: LOWER THORAX: Unremarkable. LIVER: No hepatic signal abnormality. Again noted, multiple T2 hyperintense, T1 hy pointense, nonenhancing lesions throughout the hepatic parenchyma ranging from 0.2 to 3.4 cm. These are stable and compared to prior exam dated May 04, 2018. A few of the lesions are lobulated with thin intervening nonvascular, nonenhancing septations.For example:*A 3.4 x 2.2 cm lobulated cystic lesion in the hepatic segment two with single nonenhancing septation, previously 3.2 x 1.9.*A 1.7 x 2 cmlobulated cystic lesion in the hepatic segment IVb, previously 1.7 x 2 cm.*A 1.0 x 1.9 cm cystic lesion in the hepatic segment , previously 1.2 x 2 cm.A wedge-shaped arterially enhancing, subcapsularlesion in the hepatic segment V without washout or capsule consistent with transient hepatic intensity difference.BILIARY: Gallbladder is unremarkable. No biliary ductal dilatation or filling defect.SPLEEN: No splenomegaly.PANCREAS: No focal masses or ductal dilatation. ADRENALS: No adrenal nodules.KIDNEYS/URETERS: No hydronephrosis or solid mass lesions. Subcentimeter right renal cysts. PERITONEUM/RETROPERITONEUM: No free fluid.LYMPH NODES: No upper abdominal lymphadenopathy.VESSELS: The celiac trunk, superior and inferior mesenteric and bilateral renal arteries are patent. The portal, superior mesenteric and splenic veins are patent. No collateral circulation. GI TRACT: No distention or wall thickening. BONES AND SOFT TISSUES: Stable dextroscoliosis of the lumbar spine with associated degenerative changes. No soft tissue abnormalities. IMPRESSION:Grossly stable multiple simple and minimally complex hepatic cyst. Signed: Leila Hodges MDReport Verified Date/Time: 04/16/2019 15:30:39 Reading Location: [address] -[id number] 09:41:00 Test Item Value Reference Range Interpretation Comments POC-CREATININE 0.9 mg/dL 0.6-1.3 : TESTED AT [facility] ([facility]) (test [address] [facility] [place] [facility] code = 1859) Justina, [facility] 7 0918: Grooving Lathe Tender/Techni sanjeev ID = [id number] for JAC TAN ICA POC-EGFR 84 mL/min/1.73M2 ([employer]) (test code = 1860) TISSUE [id number] 10:59:00Surgical Pathology Report Case: [id number] Authorizing Provider: Zaid Acevedo MD Collected: 03/12/2019 0837 Ordering Location: [facility] Received: 03/12/2019 1545 SERVICES Pathologist: Niama Gaspar MD Specimen: Biopsy, Gastroesophageal Junction, Hx Fernandes's esophagus, Large frcpGASTROESOPHAGEAL JUNCTION, BIOPSY: - SQUAMOCOLUMNAR JUNCTIONAL MUCOSA WITH CHRONIC INACTIVE CARDIA ESOPHAGITIS - NEGATIVE FOR INTESTINAL METAPLASIA AND DYSPLASIA - SQUAMOUS EPITHELIUM WITH REFLUX ASSOCIATED CHANGES Signing Pathologist Direct Phone Line: [phone] signed by Naima Gaspar MD on 03/14/2019 at 10:59 AMEndoscopic report reviewed./[id number] m1Yxeqpyz's esophagus without dysplasiaGastroesophageal junction biopsyReceived in formalin labeled with the patient's name, accession number and "gastroesophageal junction biopsy" is a 0.6 x 0.5 x 0.2 cm aggregate of multiple henry-pink tissue fragments which are submitted in toto in cassette A1. MW/pl PerformedMR, ABDOMEN, WITHOUT / WITH IV [id number] 09:49:00Referring Md: Kenny Tobias REPORT EXAMINATION: MRI Abdomen with and without [...] image 25).*A 2.1 x 1.8 cm lobulated lesionin hepatic segment IVB (series 7, image 16). [...] cysts versus grouped simple cysts. Signed: Gabe Christina MDReport Verified Date/Time: 05/05/2018 09:49:32 Reading Location: [facility] Reading Room [address] [place] [address] [id number] 12:06:00 Test Item Value Reference Range Interpretation Comments POC-CREATININE 0.9 mg/dL 0.6-1.3 TESTED AT [facility] 7[address] ([facility]) (test PHILIPP BLD G A code = 1859) [facility] 7703 0 POC-EGFR 84 mL/min/1.73M2 ([facility]) (test code = 1860) TISSUE [id number] 10:45:00Surgical Pathology Report Case: [id number] Authorizing Provider: Zaid Acevedo MD Collected: 09/27/201712 Ordering Location: [facility] Received: 09/27/2017 1150 SERVICES Pathologis t: Naima Gaspar MD Specimens: A) - Polyp, Colon - Transverse, polypectomy B) - Polyp, Colon - Rectum, polypectomy A. TRANSVERSE COLON POLYP, BIOPSY: - HYPERPLASTIC POLYPB. RECTUM, POLYP, BIOPSY: - POLYPOID COLONIC MUCOSA WITH HYPERPLASTIC CHANGESPatricia/bryant Signing Pathologist Direct Phone Line: Endoscopic report reviewed. [id number] cancer screening A. Transverse colon polyp. B. Rectum polyp Specimen A: Received in formalinlabeled "polyp, colon transverse" are two fragments each 0.3 cm in greatest dimension. The specimen is entirely submitted in A1.Specimen B: Received in formalin labeled "polyp, colon rectum" is a single fragment measuring 0.5 cm in greatest dimension. The specimen is entirely submitted in B1. DB/ew PerformedMR, ABDOMEN, [id number] 15:16:00 Referring Md: Kenny Tobias REPORT History: Liver lesion [...] musculature are within normal limits. The spleen, adrenal glands, kidneys, pancreas, stomach, and duodenum are within [...] hepatic cysts. No suspicious enhancing lesions are seen. Signed: Sherif Briseno MDReport Verified Date/Time: 04/20/2017 15:16:29 Reading Location: [address] [id number] 13:52:00 Test Item Value Reference Range Interpretation Comments POC-CREATININE 0.9 mg/dL 0.6-1.3 TESTED AT [facility] 67[address] ([facility]) (test PANCHO T[place]UM [place] code = 1859) [address] POC-EGFR ([facility]) 84 mL/min/1.73M2 (test code = 1860) CARCINOEMBRYONIC ANTIGEN (CEA)2017-01-13 14:17:00 Test Item Value Reference Range Interpretation Comments CARCINOEMBRYONIC ANTIGEN (AKER) 2.3 ng/mL 0.0-5.0 (test code = 685) HEPATITIS B SURFACE [id number] 14:13:00 Test Item Value Reference Range Interpretation Comments HEPATITIS B SURFACE ANTIBODY < mIU/mL <8.0 (AKER) (test code = 647) ALPHA FETOPROTEIN (AFP), TUMOR [id number] 14:06:00 Test Item Value Reference Range Interpretation Comments ALPHA-FETOPROTEIN (AKER) (test 6.2 ng/mL <10.0 code = 1094) HEPATITIS B CORE ANTIBODY, [id number] 14:06:00 Test Item Value Reference Range Interpretation Comments HEPATITIS B CORE TOTAL ANTIBODY Nonreactive Nonreactive (BEAKER) (test code = 497) HEPATITIS A ANTIBODY, [id number] 14:06:00 Test Item Value Reference Range Interpretation Comments HEPATITIS A IGG ANTIBODY (BEAKER) Nonreactive Nonreactive (test code = 2797) HEPATITIS B SURFACE [id number] 13:58:00 Test Item Value Reference Range Interpretation Comments HEPATITIS B SURFACE ANTIGEN (2) Nonreactive Nonreactive (BEAKER) (test code = 2585) HEPATITIS C [id number] 13:58:00 Test Item Value Reference Range Interpretation Comments HEPATITIS C ANTIBODY (BEAKER) Nonreactive Nonreactive (test code = 367)
[2022-12-08] MEDS ORDERED: VANCOMYCIN 1 GM in NA CHLORIDE 0.9% 250 ML IVPB ONE (19:00)
[2022-12-08] MEDS: VANCOMYCIN 1 GM in NA CHLORIDE 0.9% 250 ML IVPB SCH ×2 (19:00→21:00)
[2022-12-08 19:27] LABS: Protime INR 1.05
[2022-12-08 19:38] LABS: Absolute Lymphocytes (CBC) 1.9 K/uL (0.7-4.9); Hematocrit 46.4 % (39.6-49.0); Lymphocytes % 30.3 % (15.3-44.8); MCV 94.3 fL (80-100); MPV 7.5 fL (7.6-11.3); Platelets 264 thou/uL (152-406); RBC Red Blood Cell Count 4.91 M/uL (4.33-5.43)
[2022-12-08 19:40] LABS: Albumin 3.9 g/dL (3.4-5.0); Bilirubin Total 0.3 mg/dL (0.2-1.0); Magnesium 2.5 mg/dL (1.6-2.4); Potassium 3.7 mEq/L (3.5-5.1); Protein, Total 7.1 g/dL (6.4-8.2)
[2022-12-08] MEDS: Levofloxacin 750mg IV 750 MG/150 ML BAG IV SCH (21:31)
[2022-12-08 23:06] VITALS: BMI 29.9
--- NOTE | 2022-12-09 07:44 | HP ---
Date of Admission: 12/08/2022 Chief Complaint: Right leg infection. History Of Present Illness: This is a 72-year-old pleasant male patient who came in to see me at [place] on 11/29/2022, 10 days after his daughter's dog jumped in his lap and had 4 different scratch mar ks from dog's paws on his right anterior thigh. The patient had topical antibiotic cream that he corrine lied over there after cleaning with antiseptic solution, but after applying antibiotic cream, he real ized that this antibiotic cream was 10 years old. He continued to keep this area clean and continued to apply topical antibiotics, and subsequently things were not getting better, so he came into offic e on 11/29/2022. At that time, he was noted to have small area of cellulitis, right lower anterior t high, approximately 5 cm x 2 cm size. He was started on antibiotic Augmentin with instruction to com e see me if not better. Today, he comes back to office with concerns about his right thigh infection and it is looking worse than before, as he reports. No fever. No chills. He is taking his antibio tic as prescribed and after he was evaluated, decision was made to admit him to the hospital with wor sening of his right leg infection. Allergies: NO KNOWN ALLERGIES. Medications: List reviewed. Review of Systems: Dermatology: As mentioned above. All other systems reviewed and negative. Past Medical History: Significant for impaired fasting glucose, hypertension, hyperlipidemia, gastro esophageal reflux disease, Fernandes esophagus, liver cyst, prostate cancer, testicular hypofunction. Past Surgical History: Prostatectomy in 2009 and removal of benign cyst from his skin in the past. Family History: Father has congestive heart failure, stroke, atrial fibrillation. Mother and h ad lymphoma. Sister had stroke. Social History: Prior history of smoking, not at present time. Use of alcohol, negative. Physical Examination: Vital Signs: Upon admission, temperature 98, pulse 55, respiratory rate 16, blood pressure 145/82. His height is 65 inches, weight 182 pounds. General: Awake, alert, oriented, not in distress. HEENT: Head atraumatic, normocephalic. Conjunctivae nonerythematous. Sclerae white. Mouth, no thr ush or edema noted. Ears/Nose, no mass, lesion, discharge noted. Neck: Supple. No JVD, lymph nodes, bruit, thyromegaly noted. Lungs: Bilateral good equal air entry. Clear to auscultation. No rhonchi. No rales. Heart: Normal heart sounds, no murmur or gallop. Abdomen: Soft, bowel sounds normal. No guarding, rigidity, tenderness, mass, hepatosplenomegaly, dis tention, or bruit noted. Extremities: Right anterior thigh area of cellulitis is definitely worse today compared to last time . It is approximately 6 cm x 6 cm in size and has some macerated skin in the center and this entire area is oozing slightly yellowish colored clear liquid, so this area of cellulitis appears to be larg er than what it was a week ago or so. Another concerning abnormality we see today, which was not pre sent last time, and that is surrounding skin of the right anterior thigh appears to have soft tissue induration and there are 2 large red streaks on the medial thigh. Skin: No rash, ulcer, cellulitis. Lymphatics: No lymph node enlargement in neck, supraclavicular, infraclavicular region. Neuro: No focal neurological deficit. Chest: Unremarkable. External Genitalia: Deferred. Rectal: Deferred. Laboratory Data: White count 6.3, hemoglobin 15.6, platelets 264. INR 1.05. Sodium 139, potassium 3.7, chloride 108, bicarb 27, BUN 16, creatinine 0.99, glucose 104. Liver function test unremarkable . Impression: 1.Cellulitis/abscess, right lower extremity. 2.Hypertension. 3.Hyperlipidemia. 4.Impaired fasting glucose. 5.Prostate cancer. 6.Gastroesophageal reflux disease. Plan: We will go ahead and admit the patient to hospital for further evaluation and management of th is problem. The patient is appropriate for inpatient and is expected to spend 2 midnights in the [facility]. DVT prophylaxis will be given using Lovenox per order. We will go ahead and keep him n.p.o. after midnight and consult general surgeon, Dr. Garcia. I did call and talk to him, and details we re discussed with him this evening. The patient was taking Augmentin at home and while in the hospit al. We will go ahead and start him on IV vancomycin as well as IV Levaquin per order. Gram stain an d wound culture were ordered utilizing discharge that he has from this right anterior thigh wound, an d specimen to be collected prior to initiation of IV antibiotics. For his hypertension, he is not us ing any blood pressure medications at home, so we will monitor his blood pressure and if necessary co nsider medication. For hyperlipidemia, he uses atorvastatin. We will continue that and we will also continue his aspirin. For gastroesophageal reflux disease, we will continue his home medication and no need for further intervention. Details and plan of treatment discussed with the patient. I will see him tomorrow for followup. ZULAY/MARY Voice ID: [id number]
[2022-12-09] MEDS ORDERED: INFLUENZA VACCINE (for 6+ mo) 0.5 ML DOSE IMVAC ONE (08:00)
[2022-12-09] MEDS: POLYVINYL ALCOHOL 1.4% 15 ML EACH EYE SCH ×4 (09:00→20:47)
[2022-12-09] MEDS ORDERED: LATANOPROST 0.005% 2.5ML OPTH OPTH SCH ×2 (09:00→21:00)
[2022-12-09] MEDS ORDERED: KETOROLAC 30 MG/ML INJ ONE (09:54)
[2022-12-09] MEDS ORDERED: LIDOCAINE 2% MPF 5 ML VIAL ONE (09:54)
[2022-12-09] MEDS ORDERED: FENTANYL CITR 100 MCG/2 ML ONE (09:54)
[2022-12-09] MEDS ORDERED: propofoL 200 MG/20 ML VIAL IV ONE (09:54)
[2022-12-09] MEDS ORDERED: ONDANSETRON 4 MG/2 ML VIAL ONE (09:54)
[2022-12-09] MEDS ORDERED: BUPIVACAINE 0.25% PF 10 ML VIAL ONE (10:00)
[2022-12-09] MEDS ORDERED: Ringers Lactate 1,000 ML IV ONE (10:01)
[2022-12-09] MEDS ORDERED: EPHEDRINE SULF 50 MG/ML VIAL ONE (11:53)
--- NOTE | 2022-12-09 12:00 | P.BOP ---
Preoperative diagnosis: right thigh abscess Postoperative diagnosis: same Primary procedure: Incision and drainage of right thigh abscess 8.5 x 8 cm Estimated blood loss: <10cc Specimen: tissue biopsy and culture Findings: abscess down to fascia of muscle Anesthesia: General Complications: None Drain(s): Other (1/" packing) Transferred to: Recovery Room Condition: Good
[2022-12-09] MEDS ORDERED: MORPHINE 2 MG/ML SYR IV PRN (12:01)
[2022-12-09] MEDS ORDERED: HYDROCODONE/APAP 5/325 MG TAB PO PRN (12:01)
[2022-12-09 12:42] VITALS: O2SAT 96
[2022-12-09] MEDS: ATORVASTATIN 20 MG TAB PO SCH (13:54)
[2022-12-09] MEDS: PANTOPRAZOLE 40MG TABLET PO SCH (13:54)
[2022-12-09] MEDS: MULTIVITAMIN TAB PO SCH (13:54)
[2022-12-09] MEDS: PENTOXIFYLLINE ER 400 MG TAB PO SCH ×3 (13:54→20:46)
[2022-12-09] MEDS: ASPIRIN EC 81 MG TAB PO SCH (13:54)
--- NOTE | 2022-12-09 14:50 | CON ---
Date of Consultation: 12/09/2022 Reason For Service: Right thigh abscess. History Of Present Illness: This is the case of a 72-year-old patient, who was scratched by his dog several weeks ago, then developed an infection over that area, was treated as an outpatient by the [facility] doctor, but the areas got worse to the point that need to be admitted. I was consulted this ca se since the patient has an abscess in that region for incision and drainage. He denies any other tr auma. He has his own dog. He was on his lap and then the dog saw a squirrel and just decided to run and obviously lift the cloth on his thigh. He did not see much about it, but apparently is not impr oving on his own, getting worse. Social History: He does not smoke. He does drink alcohol. Allergies: NONE. Past Medical History: Include GE reflux, Fernandes's esophagus, history of prostate cancer, hypertensi on, hyperlipidemia. Past Surgical History: Include prostatectomy in 2008. Family History: Includes heart disease. Review of Systems: No shortness of breath. No chest pain. No fevers. See HPI for details. Physical Examination: General: The patient is awake, alert. HEENT: Pupils are equal and reactive. Anicteric. Neck: Supple. Chest: Clear. Heart: S1, S2. Abdomen: Soft and depressible. Nontender, nondistended. Bowel sounds positive. Extremities: Over the right anterior thigh, the patient has a large area of cellulitis about 20 x 20 cm. There is an induration about 4 x 4 cm right in the center, where all this started, had discolor ation, increased temperature. Fluctuance is present. Peripheral pulses still present. Laboratory Data: Blood work shows WBC count of 6.3, hemoglobin of 15, INR of 1.05, and chloride is 1 08. Assessment: A 72-year-old patient with cellulitis and abscess on right anterior thigh. The patient will go for incision and drainage and debridement with benefits, alternatives, and risks including, b ut not limited to infection, bleeding, damage to adjacent structures, anesthesia complication, nonhea ling wound, [place], and even . He also understands this may require wound care. HARJIT/MARY Voice ID: [id number] Report ID: [id number]
[2022-12-09] MEDS: ENOXAPARIN 40 MG/0.4 ML SQ SCH (16:37)
[2022-12-09] MEDS ORDERED: MORPHINE 4 MG/ML SYR IV PRN (19:40)
[2022-12-09] MEDS ORDERED: ACETAMINOPHEN 325 MG TABLET PO PRN (19:41)
[2022-12-09] MEDS ORDERED: ONDANSETRON 4 MG/2 ML VIAL IV PRN (19:42)
[2022-12-09] MEDS ORDERED: POTASSIUM CL SA 10 MEQ TAB PO ONE (20:00)
[2022-12-09] MEDS: Levofloxacin 750mg IV 750 MG/150 ML BAG IV SCH (20:46)
[2022-12-09] MEDS: TIZANIDINE 4 MG TABLET PO SCH (20:46)
[2022-12-09] MEDS: HOME MED [LATANOPROST 0.005% 2.5ML OPTH] OPTH SCH (20:47)
--- NOTE | 2022-12-09 21:57 | PN ---
Date of Progress Note: 12/09/2022 Subjective: The patient was seen this morning for followup. He was lying in bed, not in any distress. No new complaints or problems reported. Objective: Vital signs: Reviewed. HEENT: Unremarkable. Lungs: Clear to auscultation. Heart: Sounds normal. Abdomen: Soft. Bowel sounds normal. No guarding, rigidity, tenderness, distention. Extremities: Right anterior thigh shows significant improvement in appearance compared to yesterday. The patient had 2 large red streaks on the lateral thigh that had completely resolved. Multiple areas of macerated skin and clear yellowish colored fluid discharge that was noted yesterday upon admission had practically resolved, and all he has is about 5 to 6 cm area of cellulitis. Surrounding area of induration of anterior thigh, which was involving significant area of the thigh, has also significantly gone down and this is now just surrounding this area of cellulitis. There is no fluctuance. Overall, there is significant improvement in his skin appearance of the anterior thigh since the time of admission. Impression: 1. Cellulitis/abscess, right leg. 2. Hypertension. Plan: We will go ahead and continue current antibiotic, which is vancomycin as well as Levaquin. Details were discussed with Dr. Garcia who took the patient to surgery for debridement after I talked to him this morning and as of this evening, the patient was requesting some pain medications, so morphine and Tylenol were ordered. I will see him tomorrow for followup. Depending on his condition, will decide if he can go home tomorrow or not. Wound culture result was pending. ZULAY/MODL Voice ID: [id number] Report ID: [id number] MATEUSZ
[2022-12-09] MEDS: VANCOMYCIN 1.5 GM in NA CHLORIDE 0.9% 500 ML IVPB SCH (22:11)
[2022-12-10 05:19] LABS: Potassium 4.1 mEq/L (3.5-5.1)
[2022-12-10] MEDS: POLYVINYL ALCOHOL 1.4% 15 ML EACH EYE SCH ×4 (09:00→21:00)
[2022-12-10] MEDS: MORPHINE 2 MG/ML SYR IV PRN (09:28)
[2022-12-10] MEDS: MULTIVITAMIN TAB PO SCH (09:31)
[2022-12-10] MEDS: ASPIRIN EC 81 MG TAB PO SCH (09:31)
[2022-12-10] MEDS: PANTOPRAZOLE 40MG TABLET PO SCH (09:31)
[2022-12-10] MEDS: ATORVASTATIN 20 MG TAB PO SCH (09:31)
[2022-12-10] MEDS: PENTOXIFYLLINE ER 400 MG TAB PO SCH ×3 (09:31→22:07)
--- NOTE | 2022-12-10 12:58 | PN ---
Date of Progress Note: 12/10/2022 Subjective: Patient was seen this morning for followup. No new complaints or problems reported by tom junior. He was sitting in bed, had incision and drainage surgery done yesterday for debridement of r ight thigh cellulitis and abscess. Details were discussed with Dr. Garcia. Denies any chest pain, shortness of breath. No nausea, vomiting. Objective: Vital Signs: Reviewed. HEENT: Unremarkable. Lungs: Clear to auscultation. Heart: Sounds normal. Abdomen: Soft. Bowel sounds normal. No guarding, rigidity, tenderness, distention. Extremities: No leg edema. Right anterior thigh has approximately 3 cm oval-shaped wound with prese nce of small amount of blood at the bottom of this wound. Surrounding skin appears normal with very minimal induration, but significantly better. No tenderness. Laboratory Data: Sodium 138, potassium 4.1, chloride 107, bicarb 27, BUN 23, creatinine 1.12, glucos e 100. Impression: 1.Cellulitis/abscess, right thigh. 2.Hypertension. 3.Hyperlipidemia. Plan: Wound culture is pending. We will continue current empiric antibiotics, which is Levaquin and vancomycin. Continue daily wound care, dressing changes as per instruction from Dr. Garcia and pl an is to possibly discharge him to go home tomorrow. I will see him tomorrow for followup. ZULAY/MODL Voice ID: [id number] Report ID: [id number]
--- NOTE | 2022-12-10 14:19 | PN ---
Date of Progress Note: 12/10/2022 Reason For Service: Status post I and D of a thigh abscess. The patient doing a lot better. Today dressings were changed. He is in good spirits. The erythema is getting a lot less and less pain. Objective: General: He is afebrile. Chest: Clear. Abdomen: Soft and depressible. Extremities: Good capillary refill. No Homans signs. Good peripheral pulses. Integumentary: Shows an open wound area. I do not see any more pus coming from that area. No activ e bleeding. Packings were placed. Plan: Continue wet-to-dry dressing. Follow up in my office in a week from now when he gets discharg e. Dr. Chen is planning to discharge him tomorrow. He is still pending on the cultures. They will decide on the proper antibiotics treatment. He understands, he can clean the area with soap and wate r and then pack wet-to-dry. HARJIT/MARY Voice ID: [id number] Report ID: [id number]
[2022-12-10] MEDS: ENOXAPARIN 40 MG/0.4 ML SQ SCH (16:15)
[2022-12-10] MEDS: Levofloxacin 750mg IV 750 MG/150 ML BAG IV SCH (21:52)
[2022-12-10] MEDS: VANCOMYCIN 1.5 GM in NA CHLORIDE 0.9% 500 ML IVPB SCH (22:07)
[2022-12-10] MEDS: HOME MED [LATANOPROST 0.005% 2.5ML OPTH] OPTH SCH (22:07)
[2022-12-10] MEDS: TIZANIDINE 4 MG TABLET PO SCH (22:25)
[2022-12-11] MEDS: POLYVINYL ALCOHOL 1.4% 15 ML EACH EYE SCH ×3 (09:00→16:50)
[2022-12-11] MEDS: ATORVASTATIN 20 MG TAB PO SCH (09:04)
[2022-12-11] MEDS: PANTOPRAZOLE 40MG TABLET PO SCH (09:04)
[2022-12-11] MEDS: ASPIRIN EC 81 MG TAB PO SCH (09:04)
[2022-12-11] MEDS: PENTOXIFYLLINE ER 400 MG TAB PO SCH ×2 (09:04→14:15)
[2022-12-11] MEDS: MULTIVITAMIN TAB PO SCH (09:04)
[2022-12-11] MEDS ORDERED: INFLUENZA VACCINE (for 6+ mo) 0.5 ML DOSE IMVAC ONE (10:55)
[2022-12-11] MEDS: MORPHINE 2 MG/ML SYR IV PRN (11:30)
[2022-12-11] MEDS ORDERED: PNEUMOCOCCAL VACCINE 0.5 ML IMVAC ONE (12:00)
[2022-12-11 14:32] LABS: Absolute Lymphocytes (CBC) 1.5 K/uL (0.7-4.9); Lymphocytes % 21.8 % (15.3-44.8); MCV 94.5 fL (80-100); MPV 7.9 fL (7.6-11.3); Platelets 257 thou/uL (152-406); RBC Red Blood Cell Count 4.86 M/uL (4.33-5.43)
[2022-12-11 14:38] LABS: Potassium 4.2 mEq/L (3.5-5.1)
[2022-12-11] MEDS ORDERED: levoFLOXacin 750 MG TAB PO ONE (16:36)
[2022-12-11] MEDS: ENOXAPARIN 40 MG/0.4 ML SQ SCH (16:50)
[2022-12-11 17:32] VITALS: BP 150/77; TEMP 98.5
--- NOTE | 2022-12-12 09:45 | DS ---
Date of Discharge: 12/11/2022 Disposition: Discharged to go home. Physical Examination: HEENT: Examination unremarkable. Lungs: Clear to auscultation. Heart: Sounds normal. Abdomen: Soft. Bowel sounds normal. No guarding, rigidity, tenderness, distention. Extremities: No leg edema. Right lower anterior thigh has superficial open wound, unchanged from ye day. No evidence of surrounding redness or induration. No bleeding. No discharge. Laboratory Data: Upon admission on 12/08/2022, white count 6.3, hemoglobin 15.6, platelets 264 and t wero white count 6.8, hemoglobin 16, platelets 257. His wound culture remained negative. Chemistry upon admission on 12/08/2022, sodium 139, potassium 3.7, chloride 108, bicarb 27, BUN 16, creatinine 0.9, and glucose 104. Liver function tests unremarkable. Today chemistry; sodium 140, potassium 4.2 , chloride 105, bicarb 29, BUN 16, creatinine 1, glucose 95. Discharge Medications And Instructions: 1.Continue all prior home medication. 2.Take following new medication as prescribed for 10 days: Levaquin 750 mg daily for 10 days and do xycycline 100 mg 2 times a day for 10 days. The patient was explained about importance to follow ins truction which is to avoid direct sunlight exposure while on doxycycline to avoid chances of photosen sitivity type of reaction. 3.Follow up at my office and follow with Dr. Garcia next week. 4.Wet to dry dressing daily and home health services was arranged by social service and home health care will start providing services as of tomorrow. Hospital Course: A 72-year-old pleasant male patient admitted to the hospital with worsening of righ t leg infection. Please see dictated H and P for more information. When patient came into office, I was concerned about worsening of his infection and we were concerned about possibility of necrotizin g fasciitis. He was taking his Augmentin as prescribed on a regular basis. After he was admitted to the hospital, general surgeon, Dr. Garcia was consulted. The patient was kept n.p.o. after midnig ht and day after admission, he had a surgical procedure where incision and drainage and debridement w as done for this right leg abscess. Overall, his condition improved very well. Wound culture was do ne with the drainage that he had upon admission and this was a clear drainage, but this culture came back negative. He was started on empiric antibiotic, which was Levaquin and vancomycin and he tolera cally that very well. Overall, his condition has improved and Dr. Garcia has released him to go home from his point of view medically. He is stable for discharge and today he was discharged to go home in stable condition with above-mentioned medications and instructions. Final Diagnoses: 1.Cellulitis/abscess, right lower extremity. 2.Hypertension. 3.Hyperlipidemia. 4.Impaired fasting glucose. 5.Prostate cancer. 6.Gastroesophageal reflux disease. ZULAY/MODL Voice ID: [id number] Report ID: [id number]
--- NOTE | 2023-01-05 15:13 | OP ---
Date of Procedure: 12/09/2022 Surgeon: Alejandro Garcia MD Preoperative Diagnosis: Right thigh abscess. Postoperative Diagnosis: Right thigh abscess. Procedure: Incision and drainage of right thigh abscess 8.5 x 8 cm. Estimated Blood Loss: Less than 10 cc. Specimen: Tissue biopsy and culture. Finding: Abscess down to fascia of the muscle. Anesthesia: General plus local. Packing: Quarter of an inch Nu Gauze. Indication: This is the case of a male, who came to us with a large thigh abscess. Benefits, altern atives, and risks of incision and drainage were fully explained, which include, but not limited to, i nfection, bleeding, damage to adjacent structures, anesthesia complication, recurrence, MT, and even . He also understands this may not relieve any symptoms. He might need more than one surgical intervention. He will require wound care. Description Of Procedure: Patient was brought to the operating room, placed in supine position. Ane sthesia was done without complication. Thigh area was prepped and draped in sterile fashion. Incisi on was made in that region after time-out and putting local anesthetic and a large amount of pus with a complex abscess was found. Since we do not know the nature of that, we sent a tissue biopsy and c ulture. This abscess goes all the way down to fascia and the muscle. Actually some of the fascia owen d to be cleaned. The patient tolerated the procedure well. Hemostasis was obtained and the area was packed with quarter of an inch Nu Gauze, after hemostasis was obtained. The patient tolerated the procedure well. Patient sent to Recovery in stable condition. HARJIT/MARY Voice ID: [id number] Report ID: [id number]
== END 2022-12-11 16:57 | disposition home health service (06) | DRG 581 ==
LOC: 4TH 18:35
PROVIDERS: ADMIT Internal Medicine; ATTEND Internal Medicine
PROC: 0K9Q0ZX Drainage of Right Upper Leg Muscle, Open Approach, Diagnostic (ICD-10-PCS; principal; 2022-12-09 10:00)
DX: L03.115 Cellulitis of right lower limb (principal); L02.415 Cutaneous abscess of right lower limb; C61 Malignant neoplasm of prostate; I10 Essential (primary) hypertension; E78.5 Hyperlipidemia, unspecified; K21.9 Gastro-esophageal reflux disease without esophagitis; R73.01 Impaired fasting glucose; Z23 Encounter for immunization; Z90.79 Acquired absence of other genital organ(s); Z79.82 Long term (current) use of aspirin; Z79.899 Other long term (current) drug therapy
CPT/HCPCS: 36415; 80048; 80053; 83735; 85025; 85610; 87070; 87075; 87205; 88304; 90471; J1650; J2001; J2270; J2405; J2704; J3010; J7040; J7050; J7120; Q2035